=== PATIENT | female | born 1960 | race Hispanic/Latino ===

== ENCOUNTER 2017-05-17 21:20 | Emergency (ER) | payer MEDICARE, BC ==
--- NOTE | 2017-05-17 22:10 | RAD ---
RADIOGRAPH CHEST 2 VIEWS: Date: 05-17-17 Time: 9:40 P.M. HISTORY: 56-year-old female with hypoxemia. COMPARISON: 03-02-17 FINDINGS: There is cardiomegaly. Pulmonary vasculature is mildly prominent. Interstitial markings are mildly pr ominent diffusely. Previously demonstrated pulmonary densities which may have represented pneumonia o r pulmonary edema in the right mid and right lower lung zones, are no longer present. Again demonstra kristina is the calcification, tortuosity and ectasia of the thoracic aorta. Sternotomy wires. Left subcla vian dual-lead AICD. No pleural effusion or consolidation. No pneumothorax. IMPRESSION: 1. Cardiomegaly. 2. Automatic implantable cardioverter/defibrillator. 3. Atherosclerosis, ectasis, and tortuosity of thoracic aorta. MARIO ALBERTO POS: AKILAH
[2017-05-17 22:31] LABS: #Eosinphils 0.2 thou/uL (0.0-0.7); #Lymphocytes 0.5 thou/uL (1.20-3.40); #Monocytes 0.3 thou/uL (0.11-0.59); %Basophils 0.2 % (0.0-1.0); %Eosinophils 3.9 % (0.0-10.0); %Lymphocytes 8.2 % (21.0-51.0); %Monocytes 5.5 % (0.0-10.0); %Neutrophils 82.2 % (42.0-75.0); Mean Corpuscular HGB CONC 34.1 g/dL (32.0-36.0); Mean Corpuscular Hemoglobin 35.6 pg (27.0-31.0); Mean Platelet Volume 8.7 fL (7.4-10.4); Platelet Count 123 thou/uL (130-400); RBC Distribution Width 13.7 % (11.5-14.5); Red Blood Cell (RBC) Count 3.65 mill/uL (4.20-5.40); White Blood Cell (WBC) Count 6.1 thou/uL (4.8-10.8)
[2017-05-17 22:55] LABS: ALT (SGPT) 18 U/L (8-55); AST (SGOT) 29 U/L (5-34); Albumin 4.7 g/dL (3.5-5.0); Alkaline Phosphatase 111 U/L (40-150); Anion Gap 18 mmol/L (10-20); BUN (Urea Nitrogen) 17 mg/dL (9.8-20.1); Bilirubin, Total 0.4 mg/dL (0.2-1.2); Calc. Creatinine Clearance 0 mL/min (70-130); Calcium 10.2 mg/dL (7.8-10.44); Carbon Dioxide 32 mmol/L (22-29); Chloride 92 mmol/L (98-107); Estimated GFR-MDRD 11; Globulin 4.1 g/dL (2.4-3.5); Glucose 145 mg/dL (70-105); Potassium 3.7 mmol/L (3.5-5.1); Protein, Total 8.8 g/dL (6.0-8.3); Sodium 138 mmol/L (136-145)
[2017-05-17] MEDS ORDERED: Albuterol Sulfate 2.5 mg/3 ml Neb ONE (23:58)
== END 2017-05-18 00:25 | disposition home or self-care (01) ==
LOC: ERS 21:20
DX: J40 Bronchitis, not specified as acute or chronic (principal); I12.0 Hypertensive chronic kidney disease with stage 5 chronic kidney disease or end stage renal disease; N18.6 End stage renal disease; Z79.82 Long term (current) use of aspirin; Z79.899 Other long term (current) drug therapy
CPT/HCPCS: 71046; 80053; 85025; 93005; 94640; J7611; J7620

== ENCOUNTER 2018-05-03 23:17 | Emergency (ER) | payer MEDICARE, BC | END 2018-05-04 01:18 | disposition home or self-care (01) | LOC: ERS 23:17 | DX: T82.838A Hemorrhage due to vascular prosthetic devices, implants and grafts, initial encounter (principal); I12.0 Hypertensive chronic kidney disease with stage 5 chronic kidney disease or end stage renal disease; N18.6 End stage renal disease; J45.909 Unspecified asthma, uncomplicated; Z79.82 Long term (current) use of aspirin; Z79.899 Other long term (current) drug therapy; Z99.2 Dependence on renal dialysis | CPT/HCPCS: 99283 ==

== ENCOUNTER → 2019-05-22 | Day surgery (SDC) | payer MEDICARE, BC ==
[~2019-05-22] MED LIST: Heparin 10,000 UNITS/1 ML VIAL ONE
--- NOTE | 2019-05-22 08:27 | RAD ---
CHEST 1 VIEW: HISTORY: Preop testing. COMPARISON: Radiograph /[id number]. FINDINGS: Heart size is enlarged. There mild interstitial and developing alveolar edema. A single-lead dual-l ead AICD/pacer is similar. Mild dextroscoliosis of the thoracic spine. Moderate vascular calcificat ions of the aorta. No acute osseous abnormality. IMPRESSION: Mild cardiomegaly and background pulmonary edema. POS: [facility]
== END ==
LOC: CCL 06:05
PROVIDERS: ATTEND Internal Medicine Cardiovascular Disease
PROC: 4A023N7 Measurement of Cardiac Sampling and Pressure, Left Heart, Percutaneous Approach (ICD-10-PCS; principal; 2019-05-22)
PROC: B2111ZZ Fluoroscopy of Multiple Coronary Arteries using Low Osmolar Contrast (ICD-10-PCS; 2019-05-22)
PROC: B2131ZZ Fluoroscopy of Multiple Coronary Artery Bypass Grafts using Low Osmolar Contrast (ICD-10-PCS; 2019-05-22)
PROC: B2171ZZ Fluoroscopy of Right Internal Mammary Bypass Graft using Low Osmolar Contrast (ICD-10-PCS; 2019-05-22)
DX: I25.10 Atherosclerotic heart disease of native coronary artery without angina pectoris (principal); I25.82 Chronic total occlusion of coronary artery; I35.0 Nonrheumatic aortic (valve) stenosis; I51.7 Cardiomegaly; J81.1 Chronic pulmonary edema; I70.0 Atherosclerosis of aorta; Z79.82 Long term (current) use of aspirin; Z79.899 Other long term (current) drug therapy; Z88.0 Allergy status to penicillin; Z88.8 Allergy status to other drugs, medicaments and biological substances; Z95.810 Presence of automatic (implantable) cardiac defibrillator
CPT/HCPCS: 71045; J1644

== ENCOUNTER 2019-06-01 06:14 | Day surgery (SDC) | payer MEDICARE, BC ==
[2019-05-31 10:13] VITALS: BMI 34.3
[2019-06-01] MEDS ORDERED: Heparin 10,000 UNITS/1 ML VIAL ONE (06:31)
[2019-06-01] MEDS ORDERED: Lidocaine 1% (PF) 30 ML VIAL ONE (06:32)
[2019-06-01 07:19] LABS: #Eosinphils 0.2 thou/uL (0.0-0.7); #Lymphocytes 0.9 thou/uL (1.20-3.40); #Monocytes 0.7 thou/uL (0.11-0.59); #Neutrophils 3.8 thou/uL (1.40-6.50); %Basophils 0.6 % (0.0-1.0); %Eosinophils 3.4 % (0.0-10.0); %Lymphocytes 16.7 % (21.0-51.0); %Monocytes 11.8 % (0.0-10.0); %Neutrophils 67.6 % (42.0-75.0); Hemoglobin 13.2 g/dL (12.0-16.0); Mean Corpuscular HGB CONC 35.5 g/dL (32.0-36.0); Mean Corpuscular Hemoglobin 35.8 pg (27.0-31.0); Mean Platelet Volume 9.1 fL (7.4-10.4); Platelet Count 102 thou/uL (130-400); RBC Distribution Width 13.9 % (11.5-14.5); White Blood Cell (WBC) Count 5.6 thou/uL (4.8-10.8)
[2019-06-01 07:26] LABS: ALT (SGPT) 13 U/L (8-55); AST (SGOT) 22 U/L (5-34); Albumin 4.1 g/dL (3.5-5.0); Alkaline Phosphatase 93 U/L (40-110); Anion Gap 19 mmol/L (10-20); BUN (Urea Nitrogen) 17 mg/dL (9.8-20.1); Bilirubin, Total 0.5 mg/dL (0.2-1.2); Calc. Creatinine Clearance 16 mL/min (70-130); Calcium 9.7 mg/dL (7.8-10.44); Carbon Dioxide 27 mmol/L (22-29); Chloride 95 mmol/L (98-107); Estimated GFR-MDRD 8; Globulin 3.3 g/dL (2.4-3.5); Glucose 145 mg/dL (70-105); Potassium 3.6 mmol/L (3.5-5.1); Protein, Total 7.4 g/dL (6.0-8.3); Sodium 137 mmol/L (136-145)
[2019-06-01] MEDS ORDERED: Midazolam HCl 2 mg/2 ml Vial ONE (07:29)
[2019-06-01] MEDS ORDERED: Fentanyl 100 MCG/2 ML VIAL ONE (07:29)
--- NOTE | 2019-06-01 07:39 | RAD ---
EXAM: XR Chest 1 View Portable PROVIDED CLINICAL HISTORY: Preop COMPARISON: 05/22/2019 FINDINGS: Cardiac silhouette remains enlarged. Median sternotomy changes, atherosclerosis and left subclavian c ardiac pacing device are redemonstrated. Prominence of the pulmonary vasculature is redemonstrated. Multiple small nodules are again seen, similar to prior and possibly reflecting granulomatous disease . No lobar consolidation, pleural fluid or pneumothorax apparent. IMPRESSION: Cardiomegaly and prominence of the pulmonary vasculature suggesting congestive failure.
[2019-06-01] MEDS ORDERED: Protamine Sulfate 50 MG/5 ML VIAL ONE (08:49)
[2019-06-01] MEDS ORDERED: Iopamidol 370 76% 50 ML VIAL FS ONE (09:50)
[2019-06-01] MEDS ORDERED: Iopamidol 370 76% 100 ML VIAL ONE (09:50)
== END 2019-06-01 16:15 | disposition home or self-care (01) ==
LOC: CCL 06:14
PROVIDERS: ATTEND Internal Medicine Cardiovascular Disease
PROC: 4A023N6 Measurement of Cardiac Sampling and Pressure, Right Heart, Percutaneous Approach (ICD-10-PCS; principal; 2019-06-01)
PROC: B2111ZZ Fluoroscopy of Multiple Coronary Arteries using Low Osmolar Contrast (ICD-10-PCS; 2019-06-01)
PROC: B2121ZZ Fluoroscopy of Single Coronary Artery Bypass Graft using Low Osmolar Contrast (ICD-10-PCS; 2019-06-01)
PROC: B2171ZZ Fluoroscopy of Right Internal Mammary Bypass Graft using Low Osmolar Contrast (ICD-10-PCS; 2019-06-01)
DX: I25.10 Atherosclerotic heart disease of native coronary artery without angina pectoris (principal); I25.82 Chronic total occlusion of coronary artery; I25.810 Atherosclerosis of coronary artery bypass graft(s) without angina pectoris; I35.0 Nonrheumatic aortic (valve) stenosis; I51.7 Cardiomegaly; Z88.0 Allergy status to penicillin; Z88.8 Allergy status to other drugs, medicaments and biological substances; Z95.1 Presence of aortocoronary bypass graft
CPT/HCPCS: 36415; 71045; 76942; 80053; 85025; 85347; 93005; 93010; 93461; 99152; 99153; C1769; J1644; J2001; J2250; J2720; J3010; Q9967

== ENCOUNTER 2020-03-25 13:35 | Inpatient (IN) | payer MEDICARE, BC ==
[~2020-03-25 13:35] MED LIST changes: -Heparin 10,000 UNITS/1 ML VIAL ONE; +Iopamidol-370 76% 500 ML 1 ML ONE
[2020-03-25] MEDS ORDERED: Acetaminophen 325 MG TAB ONE (13:54)
[2020-03-25 14:38] LABS: #Eosinphils 0.1 thou/uL (0.0-0.7); #Lymphocytes 0.3 thou/uL (1.20-3.40); #Monocytes 0.1 thou/uL (0.11-0.59); %Basophils 0.5 % (0.0-1.0); %Eosinophils 2.1 % (0.0-10.0); %Lymphocytes 6.1 % (21.0-51.0); %Neutrophils 89.3 % (42.0-75.0); Hemoglobin 9.5 g/dL (12.0-16.0); Mean Corpuscular HGB CONC 33.5 g/dL (32.0-36.0); Mean Corpuscular Hemoglobin 34.1 pg (27.0-31.0); Mean Platelet Volume 10.4 fL (7.4-10.4); Platelet Count 65 thou/uL (130-400); RBC Distribution Width 12.6 % (11.5-14.5); Red Blood Cell (RBC) Count 2.79 mill/uL (4.20-5.40); White Blood Cell (WBC) Count 5.5 thou/uL (4.8-10.8)
--- NOTE | 2020-03-25 14:41 | RAD ---
Exam: Chest one view HISTORY: COVID positive patient. Worsening symptoms. Comparison: 06/01/2019 FINDINGS: Cardiac silhouette:Stable cardiomegaly. Stable dual lead left-sided transvenous defibrillator. There is a stent projecting over the expected course of the proximal ascending thoracic aorta. Aorta: Atherosclerosis Pulmonary vessels: Normal Costophrenic angles: Clear LUNGS: There are scattered interstitial and alveolar opacities Pneumothorax: None Osseous abnormalities: None IMPRESSION: 1. Possible congestive heart failure. Superimposed COVID pneumonia is suspected.
[2020-03-25] MEDS ORDERED: Azithromycin 500 MG VIAL ONE (15:07)
[2020-03-25] MEDS ORDERED: Cefepime 2 GM VIAL ONE (15:07)
[2020-03-25] MEDS ORDERED: Dexamethasone 10 MG/ML VIAL ONE (15:07)
[2020-03-25 15:22] LABS: ALT (SGPT) 38 U/L (8-55); AST (SGOT) 76 U/L (5-34); Albumin 3.1 g/dL (3.5-5.0); Alkaline Phosphatase 79 U/L (40-110); Anion Gap 22 mmol/L (10-20); BUN (Urea Nitrogen) 50 mg/dL (9.8-20.1); Bilirubin, Total 0.3 mg/dL (0.2-1.2); Calc. Creatinine Clearance 0 mL/min (70-130); Carbon Dioxide 26 mmol/L (22-29); Chloride 93 mmol/L (98-107); Globulin 4.1 g/dL (2.4-3.5); Glucose 196 mg/dL (70-105); Potassium 4.9 mmol/L (3.5-5.1); Protein, Total 7.2 g/dL (6.0-8.3); Sodium 136 mmol/L (136-145)
[2020-03-25] MEDS ORDERED: diphenhydrAMINE 50 MG/ML VIAL ONE (17:36)
[2020-03-25] MEDS ORDERED: Famotidine/PF 20 mg/2ml Vial ONE (17:37)
[2020-03-25] MEDS ORDERED: methylPREDNISolone Sod Succ 40 MG VIAL ONE (17:37)
[2020-03-25] MEDS ORDERED: HYDROcodone/Acetaminophen 5/325 mg Tablet PO PRN (19:07)
[2020-03-25] MEDS ORDERED: Acetaminophen 325 MG TAB PO PRN (19:07)
[2020-03-25] MEDS ORDERED: Dextrose 5% in Water 1,000 ML IV PRN (19:07)
[2020-03-25] MEDS ORDERED: Ondansetron PF 4 MG/2 ML Vial IVP PRN (19:07)
[2020-03-25] MEDS ORDERED: Dextrose 50% Abboject 50 ML SYRINGE SLOW IVP PRN (19:07)
[2020-03-25 20:04] LABS: Troponin I 0.119 ng/mL (< 0.028)
--- NOTE | 2020-03-25 20:19 | CT ---
CTA CHEST WITH CONTRAST: Axial tomograms were obtained following angio protocol with multiplanar reconstructions and 3D post p rocessing. Indications: Dyspnea, Covid positive. Comparison: CTA chest 2013. No recent comparison CT. FINDINGS: The pulmonary arteries show adequate enhancement. No evidence of pulmonary embolus. Thoracic aorta is opacified with atherosclerotic change. No dissection. Evidence of prosthetic aortic valve. Lung faust show diffuse bilateral somewhat hazy ground glass infiltrates. There is cardiomegaly with vascular congestion. Interstitial edema is superimposed on these numerous ground glass infiltrates. Findings indicate diffuse Covid pneumonia with superimposed congestive changes. IMPRESSION: 1. No evidence of pulmonary embolus. 2. Cardiomegaly with vascular congestion 3. Diffuse bilateral lung infiltrates. POS: [facility]
[2020-03-25 20:57] VITALS: BMI 34.0
[2020-03-25 21:39] LABS: Troponin I 0.131 ng/mL (< 0.028)
--- NOTE | 2020-03-25 23:39 | HP ---
PRIMARY CARE PHYSICIAN: Dr. Freeman. CHIEF COMPLAINT: Increasing shortness of breath. HISTORY OF PRESENT ILLNESS: Ms. Claudio is a very pleasant 59-year-old female who has a history of end-stage renal disease on hemodialysis, as well as ischemic cardiomyopathy. She was recently diagnosed with COVID pneumonia. Her both of her sons have COVID pneumonia as well as her who is currently still in the hospital. She shows me her lab results on her phone, in which she was diagnosed with COVID pneumonia on March 13. She says since then she has been doing actually fine, her only symptoms were cough and congestion. She had been having symptoms about 2 days prior to her test. She says that she has been having the cough, but no fever, no chills, no diarrhea, no body aches and she was given azithromycin and Decadron and had been doing okay. Until about 3 days ago when she started checking her O2 saturations and noticed that they had been steadily going down, first they were in the low 90s and then they went into the 80s. Her son is on home oxygen and so she started taking some of his oxygen, but felt she better come to the hospital as a precaution. In the ER, she was evaluated, had a chest x-ray with findings which were consistent with COVID pneumonia and she is being admitted for further treatment. She says she does not feel bad other than noticing that her O2 sats had dropped and that she has a persistent cough. She also has a history of congestive heart failure. She says she is not above her usual dry weight. In fact, her weight is actually lower and she says she has been adherent to her diet. REVIEW OF SYSTEMS: All systems were reviewed and are negative except for that mentioned in history of present illness. PAST MEDICAL HISTORY: Significant for coronary artery disease, chronic systolic heart failure, ventricular fibrillation, paroxysmal atrial fibrillation, hypertension, hyperlipidemia, end-stage renal disease on dialysis, and diabetes mellitus type 2. PAST SURGICAL HISTORY: She had a hysterectomy, five-vessel CABG. She has a biventricular defibrillator. She has had eye surgery and lysis of adhesions. ALLERGIES: TO PENICILLIN AND SHE ALSO SAYS HEPARIN, WHICH SHE SAYS MAKES HER SHE HAS BLEEDING IN THE RETINA. FAMILY HISTORY: Significant for coronary artery disease and diabetes. SOCIAL HISTORY: She is a nonsmoker, nondrinker. Denies any drug use. 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 She is and she is a full code. MEDICATIONS: Taken from the emergency room records and include: 1. Hydralazine 10 mg daily. 2. Crestor 10 mg a day. 3. Amlodipine 10 mg daily. 4. Aspirin 325 mg daily. 5. Synthroid once a day. 6. Albuterol inhaler as needed. PHYSICAL EXAMINATION: GENERAL: She is alert and oriented. She appears to be in no acute distress. She is speaking in complete sentences and sitting up in the bed. VITAL SIGNS: Blood pressure was 140/70, heart rate 74, respiratory rate of 24, temperature was 100.1, and O2 saturation was 89% on room air. HEENT: Pupils are equal, round, and reactive. Extraocular muscles are intact. Her sclerae anicteric. Throat; no erythema, no exudates. NECK: No adenopathy. No bruits. LUNGS: She has rales essentially throughout both lung faust and up to the apices. There was no rhonchi. No wheezing. CARDIOVASCULAR: She had a normal S1 and S2. There is no S3 or S4. No murmurs, clicks, or rubs. ABDOMEN: Soft, nontender, and nondistended. Positive for bowel sounds. No rebound. No guarding. EXTREMITIES: She has trace edema. No calf tenderness. No joint effusions. Her dorsalis pedis pulses are palpable, slightly diminished on the right, but palpable. SKIN: No significant skin lesions. LABORATORY RESULTS: The sodium is 136, potassium 4.9, chloride is 93, CO2 of 26, BUN of 50, creatinine 7.5, glucose is 196. White blood cell count 5.5, hemoglobin 9.5, hematocrit is 28.4, and platelet count was 65. D-dimer was 2.23. Again, her chest x-ray showed bilateral pulmonary infiltrates throughout. Heart size is enlarged with cardiomegaly and that is by my reading. ASSESSMENT: This is a pleasant 59-year-old female who presents with acute respiratory failure with hypoxemia, possibly due to COVID. However, she is about 12 to 14 days out versus superimposed bacterial pneumonia versus volume overload. She will be admitted and started on IV antibiotics. Since she was given azithromycin early on, we will go with Levaquin at this time, also place her on IV Decadron. She is not a candidate for remdesivir given her renal function as well as she is more than 10 days post symptoms. This was explained to the patient. 1. End-stage renal disease, on hemodialysis. She is due for dialysis tomorrow and we will consult Dr. Valles, who is her automotive service assistant. 2. Hypertension. We will need to reconcile and restart her home medications as well as a p.r.n. medicines. 3. Diabetes mellitus. Again, we will need to reconcile and restart her home medications and place her on a sliding scale. 4. Hypothyroidism. Restart Synthroid. She clinically appears euthyroid. 5. Deep venous thrombosis prophylaxis. She says she cannot take heparin similar to what her told me when I was taking care of him. She says that causes her eyes to bleed and she says this is true effect that she was told by her payroll and benefits assistant. It sounds like some type of retinal hemorrhage and she was told not to take heparin. Therefore, given her situation with the end-stage renal disease, we will be placing her on Xarelto low-dose daily. Job ID: [id number]
[2020-03-26] MEDS: HumaLOG 300 UNITS/3 ML VIAL SC PRN ×4 (05:59→21:02)
[2020-03-26 06:29] LABS: #Lymphocytes 0.3 thou/uL (1.20-3.40); #Neutrophils 2.6 thou/uL (1.40-6.50); %Basophils 0.7 % (0.0-1.0); %Eosinophils 0.1 % (0.0-10.0); %Lymphocytes 8.5 % (21.0-51.0); %Monocytes 0.9 % (0.0-10.0); %Neutrophils 89.8 % (42.0-75.0); Hemoglobin 9.5 g/dL (12.0-16.0); Mean Corpuscular HGB CONC 34.2 g/dL (32.0-36.0); Mean Corpuscular Hemoglobin 34.4 pg (27.0-31.0); Mean Platelet Volume 9.6 fL (7.4-10.4); Platelet Count 80 thou/uL (130-400); RBC Distribution Width 12.5 % (11.5-14.5); Red Blood Cell (RBC) Count 2.78 mill/uL (4.20-5.40); White Blood Cell (WBC) Count 2.9 thou/uL (4.8-10.8)
[2020-03-26 06:49] LABS: Anion Gap 23 mmol/L (10-20); BUN (Urea Nitrogen) 65 mg/dL (9.8-20.1); CRP (Inflammatory) 15.24 mg/dL (= or < 0.5); Calc. Creatinine Clearance 9 mL/min (70-130); Calcium 9.1 mg/dL (7.8-10.44); Carbon Dioxide 24 mmol/L (22-29); Chloride 92 mmol/L (98-107); Glucose 271 mg/dL (70-105); Potassium 4.7 mmol/L (3.5-5.1); Sodium 134 mmol/L (136-145)
[2020-03-26] MEDS ORDERED: Albuterol Sulfate 2.5 mg/3 ml Neb NEB PRN (08:49)
--- NOTE | 2020-03-26 08:49 | PDOC.HOSPP ---
- Subjective Encounter Date: 03/26/20 Encounter Time: 11:30 Subjective: Patient reports marked improvement in her symptoms. Some dyspnea on exertion and a little bit of weakness with ambulation but otherwise no cough or shortness of breath at rest. Currently requiring just 2 L of oxygen. - Objective Vital Signs & Weight: Vital Signs (12 hours) Temp Pulse Resp BP Pulse Ox 03/26/20 07:44 96.5 F L 79 18 188/87 H 93 L 03/26/20 04:00 98.6 F 75 20 171/87 H 96 03/26/20 00:00 98.5 F 76 18 166/83 H 96 03/25/20 23:07 98.5 F 76 18 166/83 H 96 Weight Weight 180 lb Result Diagrams: 03/26/20 06:10 03/26/20 06:10 Additional Labs: Accuchecks 03/26/20 05:30 POC Glucose 259 H Hospitalist ROS - Review of Systems Constitutional: denies: fever, chills Respiratory: reports: cough, SOB with excertion. denies: shortness of breath Cardiovascular: denies: chest pain, palpitations Gastrointestinal: denies: nausea, vomiting, abdominal pain - Medication Medications: Active Medications Generic Name Dose Route Start Last Admin Trade Name Freq PRN Reason Stop Dose Admin Insulin Human Lispro 0 units 03/25/20 19:07 03/26/20 05:59 Humalog 300 Units/3 Ml Vial SC 6 unit .MODERATE SLIDING SC PRN Administration Moderate Correctional Scale Sodium Chloride 10 ml 03/25/20 21:00 03/25/20 21:00 Flush - Normal Saline 10 Ml Syringe IVF 10 ml Q12HR GREGORIO Administration Hospitalist Exam Vitals: Vital Signs (12 hours) Temp Pulse Resp BP Pulse Ox 03/26/20 07:44 96.5 F L 79 18 188/87 H 93 L 03/26/20 04:00 98.6 F 75 20 171/87 H 96 03/26/20 00:00 98.5 F 76 18 166/83 H 96 03/25/20 23:07 98.5 F 76 18 166/83 H 96 Weight Weight 180 lb General Appearance: NAD, awake alert ENT: moist mucosa Heart: RRR, no murmur, no gallops, no rubs Respiratory: no wheezes, no ronchi, no tachypnea Respiratory - other findings: Mild bibasilar Rales Gastrointestinal: soft, non-tender, non-distended, normal bowel sounds Extremities: no edema Psychiatric: normal affect, normal behavior, A&O x 3 Hosp A/P - Plan Covid-19 Pneumonia -finished course of dexamethasone, not Monoclonal antibiody or Remdesivir candidate -Supplement O2 as needed Acute Respiratory Failure with Hypoxia -On 2L NC O2 -CTA with Covid-19 PNA and Congestive failure Acute on Chronic Systolic CHF -Patient of Dr. Hoang's, cardiac cath and ECHO last year with suppressed EF 25-30% -Has implanted defibrillator -Will have fluid removed as tolerated during dialysis -Fluid restriction diet ESRD on Dialysis -Dr. Valles consulted for continued dialysis CAD with previous CABG -patent grafts on cath last year Severe Aortic Stenosis Patient had bioprosthetic aortic valve replacement last summer and finished 6 months of anticoagulation HTN -resuming home meds Diabetes Mellitus Type 2 -resume home meds -diabetic diet -SSI Hypothyroidism -resuming home levothyroxine DVT Proph- Xarelto as patient has adverse effects to heparin GI Proph- Protonix Dispo: If remains stable on low dose O2 can likely be discharged home with O2 in 1-2 days.
[2020-03-26] MEDS ORDERED: Aspirin 325 MG TAB PO SCH (09:00)
[2020-03-26] MEDS ORDERED: Mometasone 100 MCG/PUFF (1 INHALER) INH PRN (09:29)
[2020-03-26] MEDS: Amlodipine 10 MG TAB PO SCH (09:33)
[2020-03-26] MEDS: Ezetimibe 10 MG TAB PO SCH (09:33)
[2020-03-26] MEDS: Carvedilol 25 MG TAB PO SCH ×2 (09:33→21:01)
[2020-03-26] MEDS: Rivaroxaban 15 MG TAB PO SCH (09:34)
[2020-03-26] MEDS: Dexamethasone 4 mg/ml Vial SLOW IVP SCH (09:35)
[2020-03-26] MEDS: Benzonatate 100 MG CAP PO PRN ×2 (10:27→17:28)
[2020-03-26] MEDS ORDERED: Epoetin (ESRD) 20,000 UNITS/ML IVP SCH (16:30)
[2020-03-26] MEDS ORDERED: EPOETIN ALFA-EPBX (ESRD) 2,000 UNIT/ML VIAL IVP SCH (17:00)
[2020-03-26] MEDS ORDERED: EPOETIN ALFA-EPBX (ESRD) 3,000 UNIT/ML VIAL IVP SCH (17:00)
[2020-03-26] MEDS: Sevelamer Carbonate 800 MG TAB PO SCH ×2 (17:00→17:27)
--- NOTE | 2020-03-26 17:46 | CON ---
DATE OF CONSULTATION: REQUESTING PHYSICIAN: Dr. Mills. REASON FOR CONSULTATION: Need for maintenance hemodialysis. IMPRESSION: 1. End-stage renal disease, hemodialysis dependent, remains on Wednesday, , Wednesday schedule. 2. Respiratory distress in the context of COVID pneumonitis. 3. Hypertension. 4. Ischemic cardiomyopathy. PLAN: 1. The patient to remain on Wednesday, , Wednesday schedule dialysis with ultrafiltration as tolerated by hemodynamics. 2. The rest of the COVID management is per the primary team. HISTORY OF PRESENT ILLNESS: History is that of a 59-year-old female patient with end-stage renal disease, hemodialysis dependent, who recently got infected with COVID, but was doing well as an outpatient. However, over the course of the past 2 to 3 days, she has been experiencing worsening shortness of breath, for which the patient presented to the hospital. Of note, multiple family members of this patient did test positive to COVID need for maintenance hemodialysis necessitated this Renal consultation. PAST MEDICAL HISTORY: Significant for ischemic cardiomyopathy, status post bypass surgery, valvular heart disease, paroxysmal atrial fibrillation, hypertension, dyslipidemia, diabetes type 2, and end-stage renal disease. MEDICATIONS: Reviewed as documented on [employer]. ALLERGIES: TO PENICILLIN AND HEPARIN. FAMILY HISTORY: Not significantly related to present illness. SOCIAL HISTORY: . No alcohol. No tobacco. No illicit drug use. 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 REVIEW OF SYSTEMS: As documented in the body of the history. All other systems were reviewed and found not to be significantly related to present illness. PHYSICAL EXAMINATION: VITAL SIGNS: The patient noted with the following vital signs; afebrile, temperature 97.1, pulse 87, respiratory rate of 16, O2 saturation blood pressure 134/84. HEENT: Unremarkable. CARDIOVASCULAR SYSTEM: First and second heart sounds were heard. RESPIRATORY SYSTEM: Clear to auscultation. DIGESTIVE SYSTEM: Revealed a benign abdomen. EXTREMITIES: No peripheral edema. SKIN: No new gross rash. LYMPHATICS: No peripheral lymphadenopathy. SUMMARY: A 59-year-old female patient, recently infected with COVID, now experiencing worsening shortness of breath. Thank you for this consultation. We will follow with you. Job ID: [id number]
[2020-03-26] MEDS ORDERED: hydrALAZINE 25 MG TAB PO SCH (21:00)
[2020-03-26] MEDS: Rosuvastatin 20 MG TAB PO SCH (21:01)
[2020-03-27] MEDS: hydrALAZINE 20 MG/ML VIAL SLOW IVP PRN ×2 (01:14→12:56)
[2020-03-27] MEDS ORDERED: Sodium Chloride 0.9% 10 ML ONE (01:15)
[2020-03-27] MEDS: HumaLOG 300 UNITS/3 ML VIAL SC PRN ×4 (04:47→20:23)
[2020-03-27] MEDS: Benzonatate 100 MG CAP PO PRN ×2 (04:50→20:23)
--- NOTE | 2020-03-27 07:47 | PDOC.HOSPP ---
- Subjective Encounter Date: 03/27/20 Encounter Time: 09:10 Subjective: Patient feeling much better. The nurse just took her off her oxygen. Has not returned to recheck oxygen on room air yet. She feels able to go home. She reports her is in the ICU on the ventilator. - Objective Vital Signs & Weight: Vital Signs (12 hours) Temp Pulse Resp BP Pulse Ox 03/27/20 04:00 96.9 F L 77 20 180/79 H 94 L 03/27/20 01:50 170/79 H 03/27/20 01:14 77 03/27/20 00:00 97.2 F L 77 20 179/82 H 92 L 03/26/20 21:01 78 03/26/20 20:00 96.7 F L 78 20 178/77 H 94 L Weight Weight 180 lb Result Diagrams: 03/26/20 06:10 03/26/20 06:10 Additional Labs: Accuchecks 03/27/20 03/26/20 03/26/20 04:25 20:48 17:25 POC Glucose 282 H 236 H 194 H 03/26/20 11:25 POC Glucose 306 H Hospitalist ROS - Review of Systems Constitutional: denies: fever, chills Respiratory: denies: cough, shortness of breath Cardiovascular: denies: chest pain, palpitations Gastrointestinal: denies: nausea, vomiting, abdominal pain - Medication Medications: Active Medications Generic Name Dose Route Start Last Admin Trade Name Freq PRN Reason Stop Dose Admin Amlodipine Besylate 10 mg 03/26/20 09:00 03/26/20 09:33 Amlodipine 10 Mg Tab PO 10 mg DAILY GREGORIO Administration Benzonatate 100 mg 03/25/20 19:07 03/27/20 04:50 Benzonatate 100 Mg Cap PO 100 mg Q6H PRN Administration Cough Carvedilol 25 mg 03/26/20 09:00 03/26/20 21:01 Carvedilol 25 Mg Tab PO 25 mg BID GREGORIO Administration Dexamethasone 6 mg 03/26/20 09:00 03/26/20 09:35 Dexamethasone 4 Mg/Ml Vial SLOW IVP 6 mg DAILY GREGORIO Administration Ezetimibe 10 mg 03/26/20 09:00 03/26/20 09:33 Ezetimibe 10 Mg Tab PO 10 mg DAILY GREGORIO Administration Epoetin Sathish-epbx 2,000 unit 03/26/20 17:00 03/26/20 18:08 Epoetin Sathish-Epbx (Esrd) 2,000 Unit/Ml Vial IVP 2,000 unit TTHSA GREGORIO Administration Epoetin Sathish-epbx 3,000 unit 03/26/20 17:00 03/26/20 18:08 Epoetin Sathish-Epbx (Esrd) 3,000 Unit/Ml Vial IVP 3,000 unit TTHSA GREGORIO Administration Hydralazine HCl 10 mg 03/25/20 19:07 03/27/20 01:14 Hydralazine 20 Mg/Ml Vial SLOW IVP 10 mg Q4H PRN Administration SBP > 180 and HR < 70 Hydralazine HCl 50 mg 03/26/20 21:00 03/26/20 21:01 Hydralazine 25 Mg Tab PO 50 mg BID GREGORIO Administration Insulin Human Lispro 0 units 03/25/20 19:07 03/27/20 04:47 Humalog 300 Units/3 Ml Vial SC 6 units .MODERATE SLIDING SC PRN Administration Moderate Correctional Scale Insulin Human Lispro 0 units 03/25/20 19:07 03/26/20 21:02 Humalog 300 Units/3 Ml Vial SC 2 unit .BEDTIME SLIDING SC PRN Administration Bedtime Correctional Scale Pantoprazole Sodium 40 mg 03/26/20 09:00 03/26/20 09:34 Pantoprazole 40 Mg Tab PO 40 mg DAILY GREGORIO Administration Rivaroxaban 15 mg 03/26/20 09:00 03/26/20 09:34 Rivaroxaban 15 Mg Tab PO 15 mg DAILY GREGORIO Administration Rosuvastatin Calcium 20 mg 03/26/20 21:00 03/26/20 21:01 Rosuvastatin 20 Mg Tab PO 20 mg HS GREGORIO Administration Sevelamer Carbonate 2,400 mg 03/26/20 12:00 03/26/20 17:27 Sevelamer Carbonate 800 Mg Tab PO 2,400 mg TID-WM GREGORIO Administration Sodium Chloride 10 ml 03/25/20 21:00 03/26/20 21:01 Flush - Normal Saline 10 Ml Syringe IVF 10 ml Q12HR GREGORIO Administration Hospitalist Exam Vitals: Vital Signs (12 hours) Temp Pulse Resp BP Pulse Ox 03/27/20 04:00 96.9 F L 77 20 180/79 H 94 L 03/27/20 01:50 170/79 H 03/27/20 01:14 77 03/27/20 00:00 97.2 F L 77 20 179/82 H 92 L 03/26/20 21:01 78 03/26/20 20:00 96.7 F L 78 20 178/77 H 94 L Weight Weight 180 lb General Appearance: NAD, awake alert ENT: moist mucosa Heart: RRR, no murmur, no gallops, no rubs Respiratory: no wheezes, no ronchi, no tachypnea Respiratory - other findings: Mild Rales in bases Gastrointestinal: soft, non-tender, non-distended, normal bowel sounds Extremities: no edema Psychiatric: normal affect, normal behavior, A&O x 3 Hosp A/P - Plan Covid-19 Pneumonia -finished course of dexamethasone, continuing daily here, not Monoclonal antibiody or Remdesivir candidate -Supplement O2 as needed Acute Respiratory Failure with Hypoxia -On 2L NC O2 -CTA with Covid-19 PNA and Congestive failure Acute on Chronic Systolic CHF -Patient of Dr. Hoang's, cardiac cath and ECHO last year with suppressed EF 25-30% -Has implanted defibrillator -Will have fluid removed as tolerated during dialysis -Fluid restriction diet ESRD on Dialysis -Dr. Valles consulted for continued dialysis CAD with previous CABG -patent grafts on cath last year Severe Aortic Stenosis Patient had bioprosthetic aortic valve replacement last summer and finished 6 months of anticoagulation HTN -resuming home meds Diabetes Mellitus Type 2 -resume home meds -diabetic diet -SSI Hypothyroidism -resuming home levothyroxine DVT Proph- Xarelto as patient has adverse effects to heparin GI Proph- Protonix Dispo: Patient is stable, and can be discharged home on home oxygen depending on her sats today at rest and with ambulation. May be able to go home off oxygen.
[2020-03-27] MEDS: Dexamethasone 4 mg/ml Vial SLOW IVP SCH (08:17)
[2020-03-27] MEDS: Sevelamer Carbonate 800 MG TAB PO SCH ×3 (08:17→17:02)
[2020-03-27] MEDS: Aspirin Chewable 81 MG TAB PO SCH (08:18)
[2020-03-27] MEDS: Carvedilol 25 MG TAB PO SCH ×2 (08:18→20:23)
[2020-03-27] MEDS: Ezetimibe 10 MG TAB PO SCH (08:19)
[2020-03-27] MEDS: hydrALAZINE 25 MG TAB PO SCH ×3 (08:19→20:27)
[2020-03-27] MEDS: Amlodipine 10 MG TAB PO SCH (08:19)
[2020-03-27] MEDS: Prenatal Vitamin 1 TAB PO SCH (08:19)
[2020-03-27] MEDS: Ubidecarenone 50 MG CAP PO SCH (08:20)
[2020-03-27] MEDS: Rivaroxaban 15 MG TAB PO SCH (08:20)
--- NOTE | 2020-03-27 10:30 | PDOC.DS.DS ---
Provider Date of Admission: 03/25/20 19:07 Date of Discharge: 03/27/20 Admitting Provider: Artie Mills MD Consultations: Nephrology (Dr. Valles) Primary Care Physician: Unknown Course Hospital Course: This is a 59-year-old female with a history of end-stage renal disease on dialysis who was whole family got COVID-19. She tested + 3 weeks ago. She never got bad fever and most of her symptoms had improved however over the last few days she did get increased shortness of breath and noticed with a home pulse ox that her oxygen saturations were dropping into the 80s. Patient was admitted to the hospital. She had a CTA that showed Covid pneumonia along with some congestion in her lungs. She did have a dialysis and fluid removal in the hospital. She was saturating well on 2 L of oxygen her entire hospital stay. She was not able to receive remdesivir due to the length of illness and her end- stage renal disease. Patient was stable and ambulating and ready to go home and so is being discharged home. We will check O2 sats before discharge to see if she needs home oxygen. Pertinent Studies: CTA CHEST WITH CONTRAST: IMPRESSION: 1. No evidence of pulmonary embolus. 2. Cardiomegaly with vascular congestion 3. Diffuse bilateral groundglass lung infiltrates indicative of Covid pneumonia. Resuscitation Status: 03/25/20 18:53 Resuscitation Status Routine Resuscitation Status: FULL: Full Resuscitation Lab Results: 03/26/20 06:10 03/26/20 06:10 Abnormal Lab Results - Last 48 hrs 03/25/20 14:20: Chloride 93 L, Anion Gap 22 H, BUN 50 H, Creatinine 7.55 H, AST 76 H, Albumin 3.1 L, Globulin 4.1 H, Albumin/Globulin Ratio 0.8 L 03/25/20 14:20: D-Dimer 2.23 H 03/25/20 14:20: RBC 2.79 L, Hgb 9.5 L, Hct 28.4 L, MCV 102.0 H, MCH 34.1 H, Plt Count 65 L, Neutrophils % 89.3 H, Lymphocytes % 6.1 L, Lymphocytes # 0.3 L, Monocytes # 0.1 L 03/25/20 14:20: Troponin I 0.124 H 03/25/20 14:20: B-Natriuretic Peptide 499.3 H 03/25/20 19:11: Troponin I 0.119 H 03/25/20 20:56: Troponin I 0.131 H 03/26/20 06:10: Sodium 134 L, Chloride 92 L, Anion Gap 23 H, BUN 65 H, Creatinine 8.48 H, C-Reactive Protein 15.24 H 03/26/20 06:10: Ferritin 8868.40 H 03/26/20 06:10: WBC 2.9 L, RBC 2.78 L, Hgb 9.5 L, Hct 27.9 L, MCV 101.0 H, MCH 34.4 H, Plt Count 80 L, Neutrophils % 89.8 H, Lymphocytes % 8.5 L, Lymphocytes # 0.3 L, Monocytes # 0.0 L 03/26/20 06:10: D-Dimer 1.90 H Microbiology - Entire Visit 03/25/20 14:59 Venous blood - Right Arm Blood Culture - Preliminary Specimen has been received and culture in progress. No Growth to date. 03/25/20 14:59 Venous blood - Right Hand Blood Culture - Preliminary Specimen has been received and culture in progress. No Growth to date. Vitals: Vital Signs (12 hours) Temp Pulse Resp BP BP Pulse Ox 03/27/20 08:19 78 185/81 H 03/27/20 07:54 98.1 F 78 20 185/81 H 96 03/27/20 04:00 96.9 F L 77 20 180/79 H 94 L 03/27/20 01:50 170/79 H 03/27/20 01:14 77 03/27/20 00:00 97.2 F L 77 20 179/82 H 92 L Weight Weight 180 lb Physical Exam: The patient was seen and examined on the day of discharge. Problem Assessment: Covid-19 Pneumonia Acute Respiratory Failure with Hypoxia Acute on Chronic Systolic CHF ESRD on Dialysis CAD with previous CABG Severe Aortic Stenosis status post bioprosthetic valve replacement this last year HTN Diabetes Mellitus Type 2 Hypothyroidism Plan of Treatment: Patient to be discharged home. We will arrange home oxygen if patient's O2 sats at rest and with ambulation continue to drop. Time Spent in discharge related activities (mins): 32 Plan Home Medications: Medication Instructions Recorded Confirmed Type ALButerol Sulfate [Ventolin Neb] 3 ml NEB Q4HR PRN 01/09/13 03/26/20 History Amlodipine Besylate [amLODIPine 10 mg PO DAILY 01/09/13 03/26/20 History Besylate] Carvedilol [Coreg] 25 mg PO BID 01/09/13 03/26/20 History Budesonide 0.5 mg NEB BID PRN 04/13/16 03/26/20 History Ezetimibe 1 tab PO DAILY 04/13/16 03/26/20 History Rosuvastatin Calcium 1 tab PO DAILY 04/13/16 03/26/20 History Sevelamer Carbonate [Renvela] 2,400 mg PO TID 04/13/16 03/26/20 History hydrALAZINE [Apresoline] 50 mg PO BID 04/13/16 03/26/20 History Aspirin 325 mg PO DAILY 05/18/19 03/26/20 History [id number]/Iron Fum/Folic/Docusate 1 tab PO DAILY 05/18/19 03/26/20 History [ 19] Ubidecarenone/Vit E Acet [Co Q-10 1 cap PO DAILY 05/18/19 03/26/20 History 100 mg Softgel] Allergies: Penicillins Allergy (Severe, Verified 05/31/19 10:49) Anaphylaxis heparin (porcine) [heparin,porcine] Allergy (Unknown, Verified 05/31/19 10:49) PER PT SUMMARY (02/26/13@0045) Activity:: Activity as Tolerated Nourishment:: Fluid Restriction Diet, Renal Diet Therapies:: Not Applicable Equipment/Supplies:: Oxygen (2 L nasal cannula) IV Therapy:: Not Applicable Referrals: Unknown,Unknown [Primary Care Provider] - 7 Days Disposition: HOME Quality CORE MEASURES:: N/A
--- NOTE | 2020-03-27 16:20 | PRG ---
DATE OF SERVICE: 03/27/2020 SUBJECTIVE: The patient seems to be doing okay. OBJECTIVE: VITAL SIGNS: Afebrile, temperature 98.6, pulse 74, respiratory rate of 20, O2 saturations of 91%, with a blood pressure HEENT: Unremarkable. CARDIOVASCULAR SYSTEM: First and second heart sounds were heard. RESPIRATORY SYSTEM: Clear to auscultation. DIGESTIVE SYSTEM: Revealed a benign abdomen. EXTREMITIES: No peripheral edema. SKIN: No new gross rash. LYMPHATICS: No peripheral lymphadenopathy. IMPRESSION: 1. End-stage renal disease, on dialysis. 2. COVID pneumonitis with relative hypoxia. PLAN: 1. The patient to continue with current dialysis schedule. The patient was dialyzed yesterday with ultrafiltration as tolerated by hemodynamics. 2. Further management will be dependent on the clinical course. Job ID: [id number]
[2020-03-27] MEDS ORDERED: cloNIDine 0.1 MG TAB PO PRN (17:06)
[2020-03-27] MEDS: Rosuvastatin 20 MG TAB PO SCH (20:23)
[2020-03-28] MEDS: HumaLOG 300 UNITS/3 ML VIAL SC PRN (05:13)
[2020-03-28] MEDS: Sevelamer Carbonate 800 MG TAB PO SCH ×2 (08:23→12:19)
[2020-03-28] MEDS: Prenatal Vitamin 1 TAB PO SCH (08:24)
[2020-03-28] MEDS: Ezetimibe 10 MG TAB PO SCH (08:24)
[2020-03-28] MEDS: Aspirin Chewable 81 MG TAB PO SCH (08:24)
[2020-03-28] MEDS: hydrALAZINE 25 MG TAB PO SCH ×2 (08:25→14:59)
[2020-03-28] MEDS: Carvedilol 25 MG TAB PO SCH (08:26)
[2020-03-28] MEDS: Rivaroxaban 15 MG TAB PO SCH (08:26)
[2020-03-28] MEDS: Amlodipine 10 MG TAB PO SCH (08:26)
[2020-03-28] MEDS: Ubidecarenone 50 MG CAP PO SCH (08:26)
--- NOTE | 2020-03-28 15:40 | PDOC.DS.DS ---
Provider Date of Admission: 03/25/20 19:07 Date of Discharge: 03/28/20 Admitting Provider: Artie Mills MD Primary Care Physician: Unknown Course Hospital Course: This is a 59-year-old female with a history of end-stage renal disease on dialysis who was whole family got COVID-19. She tested + 3 weeks ago. She never got bad fever and most of her symptoms had improved however over the last few days she did get increased shortness of breath and noticed with a home pulse ox that her oxygen saturations were dropping into the 80s. Patient was admitted to the hospital. She had a CTA that showed Covid pneumonia along with some congestion in her lungs. She did have a dialysis and fluid removal in the h [facility]spital. She was saturating well on 2 L of oxygen her entire hospital stay. She was not able to receive remdesivir due to the length of illness and her end- stage renal disease. Patient was stable and ambulating and ready to go home and so is being discharged home. Discharge initially planned for 03/27/2020 however due to delay in arranging for home oxygen, this was postponed to 03/28/2020 whic h was the date of eventual discharge Resuscitation Status: 03/25/20 18:53 Resuscitation Status Routine Resuscitation Status: FULL: Full Resuscitation Lab Results: 03/26/20 06:10 03/26/20 06:10 Microbiology - Entire Visit 03/25/20 14:59 Venous blood - Right Arm Blood Culture - Preliminary NO GROWTH AT 48 HOURS 03/25/20 14:59 Venous blood - Right Hand Blood Culture - Preliminary NO GROWTH AT 48 HOURS Vitals: Vital Signs (12 hours) Temp Pulse Resp BP BP Pulse Ox 03/28/20 14:59 72 141/72 H 03/28/20 11:26 123/69 03/28/20 09:00 98.4 F 03/28/20 08:26 72 181/85 H 03/28/20 08:25 72 181/85 H 03/28/20 08:07 98.4 F 72 20 181/85 H 93 L 03/28/20 08:00 93 L 03/28/20 05:00 98.4 F 77 20 176/86 H 91 L Weight Weight 180 lb Physical Exam: The patient was seen and examined on the day of discharge. Problem Assessment: Covid-19 Pneumonia Acute Respiratory Failure with Hypoxia Acute on Chronic Systolic CHF ESRD on Dialysis CAD with previous CABG Severe Aortic Stenosis status post bioprosthetic valve replacement this last year HTN Diabetes Mellitus Type 2 Hypothyroidism Plan of Treatment: Patient to be discharged home. We will arrange home oxygen if patient's O2 sats at rest and with ambulation continue to drop. Plan Home Medications: Medication Instructions Recorded Confirmed Type ALButerol Sulfate [Ventolin Neb] 3 ml NEB Q4HR PRN 01/09/13 03/26/20 History Amlodipine Besylate [amLODIPine 10 mg PO DAILY 01/09/13 03/26/20 History Besylate] Carvedilol [Coreg] 25 mg PO BID 01/09/13 03/26/20 History Budesonide 0.5 mg NEB BID PRN 04/13/16 03/26/20 History Ezetimibe 1 tab PO DAILY 04/13/16 03/26/20 History Rosuvastatin Calcium 1 tab PO DAILY 04/13/16 03/26/20 History Sevelamer Carbonate [Renvela] 2,400 mg PO TID 04/13/16 03/26/20 History hydrALAZINE [Apresoline] 50 mg PO BID 04/13/16 03/26/20 History Aspirin 325 mg PO DAILY 05/18/19 03/26/20 History Obw438/Iron Fum/Folic/Docusate 1 tab PO DAILY 05/18/19 03/26/20 History [ 19] Ubidecarenone/Vit E Acet [Co Q-10 1 cap PO DAILY 05/18/19 03/26/20 History 100 mg Softgel] Allergies: Penicillins Allergy (Severe, Verified 05/31/19 10:49) Anaphylaxis heparin (porcine) [heparin,porcine] Allergy (Unknown, Verified 05/31/19 10:49) PER PT SUMMARY (02/26/13@0045) Activity:: Activity as Tolerated Nourishment:: Fluid Restriction Diet, Renal Diet Therapies:: Not Applicable Equipment/Supplies:: Oxygen (2 L nasal cannula) IV Therapy:: Not Applicable Referrals: [facility] [Outside] Unknown,Unknown [Primary Care Provider] - 7 Days Disposition: HOME Quality CORE MEASURES:: N/A
[2020-03-28 16:52] VITALS: BP 136/67; TEMP 97.9
--- NOTE | 2020-03-29 06:08 | PRG ---
DATE OF SERVICE: 03/28/2020 SUBJECTIVE: The patient noted with the following vital signs. OBJECTIVE: VITAL SIGNS: Afebrile, temperature 97.9, pulse 71, respiratory rate of 18, O2 saturation 93% on room air with blood pressure 136/67. HEENT: Unremarkable. CARDIOVASCULAR SYSTEM: First and second heart sounds were heard. RESPIRATORY: . DIGESTIVE: positive bowel sounds. EXTREMITIES: No peripheral edema. SKIN: No new gross rash. LYMPHATICS: No peripheral lymphadenopathy. IMPRESSION: 1. End-stage renal disease, on hemodialysis. 2. COVID pneumonitis resulting in hypoxic respiratory failure. 3. Hypoxic respiratory failure. 4. Anemia of chronic kidney disease. PLAN: 1. The patient to continue with current schedule of hemodialysis with ultrafiltration as tolerated by hemodynamics. 2. Further management to be dependent on the clinical course. Job ID: [id number]
== END 2020-03-28 16:13 | disposition home or self-care (01) | DRG 177 ==
LOC: ERS 13:35 → T4-B 19:07
PROVIDERS: ADMIT Internal Medicine; ATTEND Internal Medicine
PROC: 8E0ZXY6 Isolation (ICD-10-PCS; principal; 2020-03-25)
PROC: 5A1D70Z Performance of Urinary Filtration, Intermittent, Less than 6 Hours Per Day (ICD-10-PCS; 2020-03-25)
DX: U07.1 COVID-19 (principal); J12.82 Pneumonia due to coronavirus disease 2019; J96.01 Acute respiratory failure with hypoxia; N18.6 End stage renal disease; I50.23 Acute on chronic systolic (congestive) heart failure; I13.2 Hypertensive heart and chronic kidney disease with heart failure and with stage 5 chronic kidney disease, or end stage renal disease; E11.22 Type 2 diabetes mellitus with diabetic chronic kidney disease; I48.0 Paroxysmal atrial fibrillation; I35.0 Nonrheumatic aortic (valve) stenosis; I25.5 Ischemic cardiomyopathy; I25.10 Atherosclerotic heart disease of native coronary artery without angina pectoris; E03.9 Hypothyroidism, unspecified; Z79.51 Long term (current) use of inhaled steroids; Z99.2 Dependence on renal dialysis; Z79.82 Long term (current) use of aspirin; Z79.899 Other long term (current) drug therapy; Z88.0 Allergy status to penicillin; Z88.8 Allergy status to other drugs, medicaments and biological substances; Z95.1 Presence of aortocoronary bypass graft
CPT/HCPCS: 36415; 36416; 71045; 71275; 80048; 80053; 82553; 82728; 83605; 83880; 84484; 85025; 85379; 86140; 87040; 90935; 93005; 96365; 96368; 96375; G0257; J0360; J0456; J0692; J1100; J1200; J1815; J1956; J2920; Q5105; Q9967; S0028

== ENCOUNTER 2020-08-29 11:24 | Emergency (ER) | payer MEDICARE, BC ==
[2020-08-29] MEDS ORDERED: Boostrix 0.5 ML (Tdap) VIAL ONE (14:28)
[2020-08-29] MEDS ORDERED: Bacitracin 1 PK ONE (14:31)
[2020-08-29] MEDS ORDERED: HYDROcodone/Acetaminophen 5/325 mg Tablet ONE (14:44)
== END 2020-08-29 14:45 | disposition home or self-care (01) ==
LOC: ERS 11:24
DX: S80.02XA Contusion of left knee, initial encounter (principal); I10 Essential (primary) hypertension; J45.909 Unspecified asthma, uncomplicated; N18.6 End stage renal disease; Z79.82 Long term (current) use of aspirin; Z79.899 Other long term (current) drug therapy; W18.30XA Fall on same level, unspecified, initial encounter
CPT/HCPCS: 90471; 90715

== ENCOUNTER 2020-12-20 09:00 | Outpatient (CLI) | payer MEDICARE, BC ==
[2020-12-20 21:10] LABS: SARS-CoV-2 PCR by NAA Not Detected (NotDetected)
== END 2020-12-20 09:01 | disposition home or self-care (01) ==
LOC: LABBT 09:00
PROVIDERS: ATTEND Ophthalmology
DX: Z01.812 Encounter for preprocedural laboratory examination (principal); Z20.822 Contact with and (suspected) exposure to COVID-19
CPT/HCPCS: U0003; U0005

== ENCOUNTER 2020-12-24 10:56 | Day surgery (SDC) | payer MEDICARE, BC ==
[2020-12-23 09:29] VITALS: BMI 32.5
[2020-12-24] MEDS ORDERED: Phenylephrine 2.5% Ophth Soln 5 ML BOT ONE (11:06)
== END 2020-12-24 12:25 | disposition home or self-care (01) ==
LOC: SDC 10:56
PROVIDERS: ATTEND Ophthalmology
PROC: 085J3ZZ Destruction of Right Lens, Percutaneous Approach (ICD-10-PCS; principal; 2020-12-24)
DX: H26.491 Other secondary cataract, right eye (principal); Z79.82 Long term (current) use of aspirin; Z79.84 Long term (current) use of oral hypoglycemic drugs; Z79.899 Other long term (current) drug therapy; Z88.0 Allergy status to penicillin; Z88.8 Allergy status to other drugs, medicaments and biological substances

== ENCOUNTER 2021-02-01 22:48 | Emergency (ER) | payer MEDICARE, BC | END 2021-02-02 00:29 | disposition home or self-care (01) | LOC: ERS 22:48 | DX: T82.838A Hemorrhage due to vascular prosthetic devices, implants and grafts, initial encounter (principal); I12.0 Hypertensive chronic kidney disease with stage 5 chronic kidney disease or end stage renal disease; N18.6 End stage renal disease; J45.909 Unspecified asthma, uncomplicated; Z99.2 Dependence on renal dialysis; Z79.82 Long term (current) use of aspirin; Z79.899 Other long term (current) drug therapy | CPT/HCPCS: 99283 ==

== ENCOUNTER 2021-07-24 10:38 | Emergency (ER) | payer MEDICARE, BC ==
[2021-07-24 11:26] LABS: #Basophils 0.1 thou/uL (0.0-0.2); #Eosinphils 0.2 thou/uL (0.0-0.7); #Lymphocytes 0.7 thou/uL (1.20-3.40); #Monocytes 0.6 thou/uL (0.11-0.59); #Neutrophils 3.9 thou/uL (1.40-6.50); %Eosinophils 3.8 % (0.0-10.0); %Lymphocytes 12.1 % (21.0-51.0); %Monocytes 10.6 % (0.0-10.0); %Neutrophils 72.5 % (42.0-75.0); Hemoglobin 11.6 g/dL (12.0-16.0); Mean Corpuscular HGB CONC 32.7 g/dL (32.0-36.0); Mean Corpuscular Hemoglobin 33.4 pg (27.0-31.0); Mean Platelet Volume 9.2 fL (7.4-10.4); Platelet Count 88 thou/uL (130-400); RBC Distribution Width 13.1 % (11.5-14.5); Red Blood Cell (RBC) Count 3.47 mill/uL (4.20-5.40); White Blood Cell (WBC) Count 5.4 thou/uL (4.8-10.8)
[2021-07-24 11:49] LABS: ALT (SGPT) 13 U/L (8-55); AST (SGOT) 20 U/L (5-34); Alkaline Phosphatase 121 U/L (40-110); Anion Gap 15 mmol/L (10-20); BUN (Urea Nitrogen) 37 mg/dL (9.8-20.1); Bilirubin, Total 0.6 mg/dL (0.2-1.2); Calc. Creatinine Clearance 0 mL/min (70-130); Calcium 8.9 mg/dL (7.8-10.44); Carbon Dioxide 31 mmol/L (23-31); Chloride 95 mmol/L (98-107); Globulin 3.5 g/dL (2.4-3.5); Glucose 181 mg/dL (80-115); Lipase 69 U/L (8-78); Potassium 4.4 mmol/L (3.5-5.1); Protein, Total 7.5 g/dL (5.8-8.1); Sodium 137 mmol/L (136-145)
[2021-07-24 14:08] LABS: Protein, Urine (Dipstick) > or equal to 300 mg/dL (Neg-Trace)
[2021-07-24 14:12] LABS: Clarity Cloudy (Clear)
[2021-07-24 14:17] LABS: Nitrite Negative (Negative)
[2021-07-24 14:18] LABS: Glucose, Urine (Dipstick) 250 mg/dL (Negative); Ketone, Urine Negative (Negative)
[2021-07-24 14:19] LABS: Bilirubin Negative (Negative); Blood, Urine Large (Negative); Leukocyte Small Leu/uL (Negative)
[2021-07-24 14:20] LABS: RBC/HPF Greater than 50 HPF (0-3)
[2021-07-24 14:21] LABS: Bacteria/HPF None Seen HPF (None Seen); Transitional Epithelial 0-3 HPF (None Seen)
== END 2021-07-24 15:20 | disposition home or self-care (01) ==
LOC: EEVIPCON 10:38 → ERS 10:38
DX: N39.0 Urinary tract infection, site not specified (principal); E11.22 Type 2 diabetes mellitus with diabetic chronic kidney disease; I12.0 Hypertensive chronic kidney disease with stage 5 chronic kidney disease or end stage renal disease; N18.6 End stage renal disease; Z79.899 Other long term (current) drug therapy
CPT/HCPCS: 36415; 51701; 74176; 80053; 81003; 81015; 83690; 85025

== ENCOUNTER 2021-07-31 12:56 | Inpatient (IN) | payer MEDICARE, BC ==
[2021-07-31 14:26] LABS: #Basophils 0.1 thou/uL (0.0-0.2); #Lymphocytes 0.3 thou/uL (1.20-3.40); #Monocytes 0.3 thou/uL (0.11-0.59); #Neutrophils 6.2 thou/uL (1.40-6.50); %Basophils 0.8 % (0.0-1.0); %Eosinophils 0.2 % (0.0-10.0); %Lymphocytes 4.5 % (21.0-51.0); %Monocytes 4.3 % (0.0-10.0); %Neutrophils 90.2 % (42.0-75.0); Hemoglobin 11.1 g/dL (12.0-16.0); Mean Corpuscular HGB CONC 33.4 g/dL (32.0-36.0); Mean Corpuscular Hemoglobin 33.9 pg (27.0-31.0); Mean Platelet Volume 9.6 fL (7.4-10.4); Platelet Count 63 thou/uL (130-400); RBC Distribution Width 12.9 % (11.5-14.5); Red Blood Cell (RBC) Count 3.26 mill/uL (4.20-5.40); White Blood Cell (WBC) Count 6.9 thou/uL (4.8-10.8)
[2021-07-31 14:43] LABS: ALT (SGPT) 19 U/L (8-55); AST (SGOT) 34 U/L (5-34); Albumin 3.8 g/dL (3.4-4.8); Alkaline Phosphatase 109 U/L (40-110); Anion Gap 18 mmol/L (10-20); BUN (Urea Nitrogen) 26 mg/dL (9.8-20.1); Bilirubin, Total 0.6 mg/dL (0.2-1.2); Calc. Creatinine Clearance 0 mL/min (70-130); Calcium 8.6 mg/dL (7.8-10.44); Carbon Dioxide 27 mmol/L (23-31); Chloride 94 mmol/L (98-107); Globulin 3.4 g/dL (2.4-3.5); Glucose 227 mg/dL (80-115); Potassium 4.8 mmol/L (3.5-5.1); Protein, Total 7.2 g/dL (5.8-8.1); Sodium 134 mmol/L (136-145)
[2021-07-31] MEDS ORDERED: cefTRIAXone\\ROCEPHIN 1 GM VIAL ONE (15:02)
[2021-07-31 15:13] LABS: CKMB 2.7 ng/mL (0-6.6)
[2021-07-31] MEDS ORDERED: Dextrose 5% in Water 1,000 ML IV PRN (16:11)
[2021-07-31] MEDS ORDERED: Dextrose 50% Abboject 50 ML SYRINGE SLOW IVP PRN (16:11)
[2021-07-31] MEDS ORDERED: Ondansetron ODT 4 MG TAB PO PRN (16:12)
[2021-07-31] MEDS ORDERED: Ondansetron PF 4 MG/2 ML Vial IVP PRN (16:12)
[2021-07-31] MEDS ORDERED: Azithromycin 500 MG VIAL ONE (16:45)
[2021-07-31 17:08] LABS: Lactic Acid 1.6 mmol/L (0.5-2.2)
[2021-07-31 18:23] LABS: HBSAg Index 0.17 S/CO (0-0.99); Hep B Core Total Ab Non-Reactive (NonReactive); Hep B Core Total Index 0.09 S/CO (0-0.79); Hep B Surf Ag Non-Reactive S/CO (NonReactive); Hep C IgG Ab Non-Reactive (NonReactive); Hep C Index 0.09 S/CO (0-0.79)
[2021-07-31 18:28] LABS: HBSAB Concentration 14.97 mIU/mL; Hep B Surf AB Reactive (NonReactive)
[2021-07-31 20:32] LABS: Troponin I 4.517 ng/mL (< 0.028)
[2021-07-31 21:35] VITALS: BMI 33.1
[2021-07-31] MEDS ORDERED: Albuterol Sulfate 2.5 mg/3 ml Neb NEB PRN (22:48)
[2021-07-31] MEDS ORDERED: Budesonide 0.5 MG/2 ML NEB NEB PRN (22:48)
[2021-07-31] MEDS: Aspirin 81 mg Enteric Coated Tablet PO SCH (22:49)
[2021-07-31] MEDS: Rosuvastatin 10 MG TAB PO SCH (23:13)
[2021-07-31] MEDS: Carvedilol 25 MG TAB PO SCH (23:13)
[2021-07-31] MEDS ORDERED: hydrALAZINE 10 MG TAB PO SCH (23:15)
[2021-07-31] MEDS ORDERED: Carvedilol 25 MG TAB PO SCH (23:15)
[2021-07-31] MEDS ORDERED: Aspirin 81 mg Enteric Coated Tablet PO SCH (23:15)
[2021-07-31] MEDS ORDERED: glipiZIDE 5 MG TAB PO SCH (23:15)
[2021-07-31] MEDS ORDERED: Rosuvastatin 10 MG TAB PO SCH (23:15)
[2021-07-31 23:19] LABS: SARS-CoV-2 NAA Rapid Test Not Detected (NotDetected)
[2021-08-01 04:58] LABS: Anion Gap 21 mmol/L (10-20); BUN (Urea Nitrogen) 30 mg/dL (9.8-20.1); Calc. Creatinine Clearance 16 mL/min (70-130); Calcium 9.2 mg/dL (7.8-10.44); Carbon Dioxide 25 mmol/L (23-31); Chloride 94 mmol/L (98-107); Critical Call Chem Troponin I RESULT DECREASING; Glucose 313 mg/dL (80-115); Potassium 4.2 mmol/L (3.5-5.1); Sodium 136 mmol/L (136-145)
[2021-08-01 05:00] LABS: #Lymphocytes 0.4 thou/uL (1.20-3.40); #Monocytes 0.2 thou/uL (0.11-0.59); #Neutrophils 5.4 thou/uL (1.40-6.50); %Eosinophils 0.1 % (0.0-10.0); %Lymphocytes 6.6 % (21.0-51.0); %Monocytes 3.5 % (0.0-10.0); %Neutrophils 89.7 % (42.0-75.0); Hemoglobin 10.7 g/dL (12.0-16.0); Mean Corpuscular HGB CONC 34.1 g/dL (32.0-36.0); Mean Corpuscular Hemoglobin 34.2 pg (27.0-31.0); Mean Platelet Volume 9.8 fL (7.4-10.4); Platelet Count 77 thou/uL (130-400); RBC Distribution Width 12.9 % (11.5-14.5); Red Blood Cell (RBC) Count 3.12 mill/uL (4.20-5.40)
[2021-08-01 05:16] LABS: CKMB 3.5 ng/mL (0-6.6)
[2021-08-01] MEDS: HumaLOG 300 UNITS/3 ML VIAL SC PRN (06:04)
[2021-08-01] MEDS ORDERED: Moisturizing Cream (Eucerin) 113 GM JAR TOP PRN (08:10)
[2021-08-01] MEDS ORDERED: hydrALAZINE 20 MG/ML VIAL SLOW IVP PRN (08:10)
[2021-08-01] MEDS ORDERED: Cepastat Lozenges 1 LOZ PO PRN (08:10)
[2021-08-01] MEDS ORDERED: Loperamide HCl 2 MG CAP PO PRN (08:10)
[2021-08-01] MEDS ORDERED: Sodium Chloride 0.65% Nasal 44 ML BOT EA NARE PRN (08:10)
[2021-08-01] MEDS ORDERED: Senokot S 8.6-50 MG TAB PO PRN (08:10)
[2021-08-01] MEDS ORDERED: GUAIFENESIN SF SOLN 200 MG/10 ML UDCUP PO PRN (08:10)
[2021-08-01] MEDS ORDERED: Artificial Tear Sol 15 ML BOT EA EYE PRN (08:10)
[2021-08-01] MEDS ORDERED: Calcium Carbonate 500 MG ChewTAB PO PRN (08:10)
[2021-08-01] MEDS: Ezetimibe 10 MG TAB PO SCH (08:57)
[2021-08-01] MEDS: Sevelamer Carbonate 800 MG TAB PO SCH ×3 (08:57→20:35)
[2021-08-01] MEDS: Prenatal Vitamin 1 TAB PO SCH (08:57)
[2021-08-01] MEDS: Amlodipine 10 MG TAB PO SCH (08:57)
[2021-08-01] MEDS: Folic Acid/Vit B Comp W-C PO SCH (08:58)
[2021-08-01] MEDS: glipiZIDE 5 MG TAB PO SCH ×2 (08:58→20:35)
[2021-08-01] MEDS: hydrALAZINE 10 MG TAB PO SCH ×3 (08:59→20:33)
[2021-08-01] MEDS ORDERED: Aspirin 325 mg Enteric Coated Tablet PO SCH (09:00)
[2021-08-01] MEDS ORDERED: Aspirin 325 MG TAB PO SCH (09:00)
[2021-08-01] MEDS ORDERED: Albuterol Sulfate 2.5 mg/3 ml Neb NEB PRN (13:30)
[2021-08-01] MEDS: cefTRIAXone\\ROCEPHIN 1 GM in Sodium Chloride 0.9% 100 ML IVPB SCH (15:33)
[2021-08-01] MEDS: Azithromycin 500 MG in Sodium Chloride 0.9% 250 ML 250 ML IVPB SCH (18:38)
[2021-08-01] MEDS: Aspirin 81 mg Enteric Coated Tablet PO SCH (20:33)
[2021-08-01] MEDS: Carvedilol 25 MG TAB PO SCH (20:34)
[2021-08-02 04:46] LABS: #Eosinphils 0.1 thou/uL (0.0-0.7); #Monocytes 0.7 thou/uL (0.11-0.59); #Neutrophils 4.6 thou/uL (1.40-6.50); %Basophils 0.5 % (0.0-1.0); %Eosinophils 0.9 % (0.0-10.0); %Monocytes 10.9 % (0.0-10.0); %Neutrophils 72.6 % (42.0-75.0); Hemoglobin 11.8 g/dL (12.0-16.0); Mean Corpuscular HGB CONC 33.2 g/dL (32.0-36.0); Mean Corpuscular Hemoglobin 34.4 pg (27.0-31.0); Mean Platelet Volume 9.7 fL (7.4-10.4); Platelet Count 81 thou/uL (130-400); RBC Distribution Width 12.8 % (11.5-14.5); Red Blood Cell (RBC) Count 3.43 mill/uL (4.20-5.40); White Blood Cell (WBC) Count 6.3 thou/uL (4.8-10.8)
[2021-08-02 04:59] LABS: Anion Gap 16 mmol/L (10-20); BUN (Urea Nitrogen) 45 mg/dL (9.8-20.1); Calc. Creatinine Clearance 18 mL/min (70-130); Calcium 8.9 mg/dL (7.8-10.44); Carbon Dioxide 28 mmol/L (23-31); Chloride 93 mmol/L (98-107); Glucose 163 mg/dL (80-115); Magnesium 2.1 mg/dL (1.6-2.6); Potassium 3.9 mmol/L (3.5-5.1); Sodium 133 mmol/L (136-145)
[2021-08-02 05:00] LABS: Phosphorus 2.9 mg/dL (2.3-4.7)
[2021-08-02] MEDS: Amlodipine 10 MG TAB PO SCH (08:38)
[2021-08-02] MEDS: Carvedilol 25 MG TAB PO SCH ×2 (08:39→21:13)
[2021-08-02] MEDS: Folic Acid/Vit B Comp W-C PO SCH (08:39)
[2021-08-02] MEDS: Prenatal Vitamin 1 TAB PO SCH (08:39)
[2021-08-02] MEDS: Ezetimibe 10 MG TAB PO SCH (08:39)
[2021-08-02] MEDS: hydrALAZINE 10 MG TAB PO SCH ×2 (08:40→21:13)
[2021-08-02] MEDS: Sevelamer Carbonate 800 MG TAB PO SCH ×3 (08:40→21:12)
[2021-08-02] MEDS: glipiZIDE 5 MG TAB PO SCH ×2 (08:40→21:13)
[2021-08-02] MEDS: HumaLOG 300 UNITS/3 ML VIAL SC PRN (13:28)
[2021-08-02] MEDS: cefTRIAXone\\ROCEPHIN 1 GM in Sodium Chloride 0.9% 100 ML IVPB SCH (17:02)
[2021-08-02] MEDS: Azithromycin 500 MG in Sodium Chloride 0.9% 250 ML 250 ML IVPB SCH (17:02)
[2021-08-02] MEDS: Aspirin 81 mg Enteric Coated Tablet PO SCH (21:13)
[2021-08-02] MEDS: Rosuvastatin 10 MG TAB PO SCH (21:13)
[2021-08-02] MEDS: Acetaminophen 325 MG TAB PO PRN (23:00)
[2021-08-03 05:13] LABS: #Eosinphils 0.2 thou/uL (0.0-0.7); #Lymphocytes 0.9 thou/uL (1.20-3.40); #Monocytes 0.6 thou/uL (0.11-0.59); #Neutrophils 4.6 thou/uL (1.40-6.50); %Basophils 0.1 % (0.0-1.0); %Eosinophils 2.6 % (0.0-10.0); %Lymphocytes 14.1 % (21.0-51.0); %Monocytes 9.4 % (0.0-10.0); %Neutrophils 73.9 % (42.0-75.0); Hemoglobin 10.6 g/dL (12.0-16.0); Mean Platelet Volume 9.8 fL (7.4-10.4); Platelet Count 83 thou/uL (130-400); RBC Distribution Width 12.7 % (11.5-14.5); Red Blood Cell (RBC) Count 3.03 mill/uL (4.20-5.40); White Blood Cell (WBC) Count 6.3 thou/uL (4.8-10.8)
[2021-08-03 05:23] LABS: Anion Gap 17 mmol/L (10-20); BUN (Urea Nitrogen) 74 mg/dL (9.8-20.1); Calc. Creatinine Clearance 12 mL/min (70-130); Calcium 8.5 mg/dL (7.8-10.44); Carbon Dioxide 28 mmol/L (23-31); Chloride 93 mmol/L (98-107); Glucose 172 mg/dL (80-115); Potassium 3.9 mmol/L (3.5-5.1); Sodium 134 mmol/L (136-145)
[2021-08-03 05:28] LABS: Critical Call Chem Troponin I RESULT DECREASING; Troponin I 2.421 ng/mL (< 0.028)
[2021-08-03] MEDS: HumaLOG 300 UNITS/3 ML VIAL SC PRN ×2 (06:02→17:38)
[2021-08-03] MEDS: Folic Acid/Vit B Comp W-C PO SCH (09:45)
[2021-08-03] MEDS: Sevelamer Carbonate 800 MG TAB PO SCH ×2 (09:45→16:42)
[2021-08-03] MEDS: hydrALAZINE 10 MG TAB PO SCH ×2 (09:46→19:45)
[2021-08-03] MEDS: Carvedilol 25 MG TAB PO SCH ×2 (09:46→19:46)
[2021-08-03] MEDS: Prenatal Vitamin 1 TAB PO SCH (09:46)
[2021-08-03] MEDS: Amlodipine 10 MG TAB PO SCH (09:47)
[2021-08-03] MEDS: Ezetimibe 10 MG TAB PO SCH (09:47)
[2021-08-03] MEDS: glipiZIDE 5 MG TAB PO SCH ×2 (09:47→16:38)
[2021-08-03] MEDS ORDERED: Sevelamer Carbonate 800 MG TAB PO SCH (13:15)
[2021-08-03] MEDS: cefTRIAXone\\ROCEPHIN 1 GM in Sodium Chloride 0.9% 100 ML IVPB SCH (16:37)
[2021-08-03] MEDS ORDERED: Azithromycin 250 MG TAB PO SCH (17:00)
[2021-08-03] MEDS: Aspirin 81 mg Enteric Coated Tablet PO SCH (19:45)
[2021-08-03] MEDS: Rosuvastatin 10 MG TAB PO SCH (19:45)
[2021-08-03] MEDS: Acetaminophen 325 MG TAB PO PRN (19:46)
[2021-08-04 05:23] LABS: #Eosinphils 0.4 thou/uL (0.0-0.7); #Lymphocytes 0.9 thou/uL (1.20-3.40); #Monocytes 0.5 thou/uL (0.11-0.59); #Neutrophils 3.9 thou/uL (1.40-6.50); %Basophils 0.1 % (0.0-1.0); %Eosinophils 6.6 % (0.0-10.0); %Lymphocytes 15.6 % (21.0-51.0); %Monocytes 8.5 % (0.0-10.0); %Neutrophils 69.1 % (42.0-75.0); Hemoglobin 10.9 g/dL (12.0-16.0); Mean Corpuscular HGB CONC 33.9 g/dL (32.0-36.0); Mean Corpuscular Hemoglobin 34.6 pg (27.0-31.0); Mean Platelet Volume 9.1 fL (7.4-10.4); Platelet Count 93 thou/uL (130-400); RBC Distribution Width 12.8 % (11.5-14.5); Red Blood Cell (RBC) Count 3.16 mill/uL (4.20-5.40); White Blood Cell (WBC) Count 5.7 thou/uL (4.8-10.8)
[2021-08-04 05:45] LABS: Anion Gap 22 mmol/L (10-20); BUN (Urea Nitrogen) 94 mg/dL (9.8-20.1); Calc. Creatinine Clearance 9 mL/min (70-130); Calcium 9.1 mg/dL (7.8-10.44); Carbon Dioxide 21 mmol/L (23-31); Cardiac Risk 5.5 (Less than 4.5); Chloride 94 mmol/L (98-107); Cholesterol 122 mg/dl (< 200 Desired); Glucose 188 mg/dL (80-115); HDL Cholesterol 22 mg/dL (>60 Neg Risk); LDL Cholesterol, Calculated 34 mg/dL; Potassium 4.1 mmol/L (3.5-5.1); Sodium 133 mmol/L (136-145); Triglycerides 330 mg/dL (Less than 150)
[2021-08-04] MEDS: hydrALAZINE 10 MG TAB PO SCH ×2 (06:27→21:44)
[2021-08-04] MEDS: Sevelamer Carbonate 800 MG TAB PO SCH ×3 (06:28→16:59)
[2021-08-04] MEDS: Folic Acid/Vit B Comp W-C PO SCH (06:28)
[2021-08-04] MEDS: Prenatal Vitamin 1 TAB PO SCH (06:28)
[2021-08-04] MEDS: Ezetimibe 10 MG TAB PO SCH (06:28)
[2021-08-04] MEDS: Amlodipine 10 MG TAB PO SCH (06:28)
[2021-08-04] MEDS: Carvedilol 25 MG TAB PO SCH ×2 (06:28→21:48)
[2021-08-04] MEDS: glipiZIDE 5 MG TAB PO SCH ×2 (06:29→16:58)
[2021-08-04] MEDS: HumaLOG 300 UNITS/3 ML VIAL SC PRN ×3 (06:29→21:44)
[2021-08-04] MEDS: cefTRIAXone\\ROCEPHIN 1 GM in Sodium Chloride 0.9% 100 ML IVPB SCH (16:58)
[2021-08-04] MEDS ORDERED: Communication Order-Pharmacy FS SCH (18:00)
[2021-08-04] MEDS: Aspirin 81 mg Enteric Coated Tablet PO SCH (21:44)
[2021-08-04] MEDS: Rosuvastatin 10 MG TAB PO SCH (21:45)
[2021-08-05] MEDS: Amlodipine 10 MG TAB PO SCH (05:50)
[2021-08-05] MEDS: Carvedilol 25 MG TAB PO SCH ×2 (05:50→20:18)
[2021-08-05] MEDS: Ezetimibe 10 MG TAB PO SCH (05:50)
[2021-08-05] MEDS: Folic Acid/Vit B Comp W-C PO SCH (05:50)
[2021-08-05] MEDS: hydrALAZINE 10 MG TAB PO SCH ×2 (05:51→20:18)
[2021-08-05] MEDS ORDERED: Heparin 10,000 UNITS/ 10 ML VIAL ONE (07:12)
[2021-08-05] MEDS ORDERED: Midazolam HCl 2 mg/2 ml Vial ONE (07:14)
[2021-08-05] MEDS ORDERED: Fentanyl 100 MCG/2 ML VIAL ONE (07:15)
[2021-08-05] MEDS: glipiZIDE 5 MG TAB PO SCH ×2 (07:20→16:26)
[2021-08-05] MEDS: Prenatal Vitamin 1 TAB PO SCH (07:20)
[2021-08-05] MEDS: Sevelamer Carbonate 800 MG TAB PO SCH ×3 (07:20→16:26)
[2021-08-05 08:47] LABS: Anion Gap 14 mmol/L (10-20); BUN (Urea Nitrogen) 50 mg/dL (9.8-20.1); Calc. Creatinine Clearance 13 mL/min (70-130); Calcium 8.2 mg/dL (7.8-10.44); Carbon Dioxide 28 mmol/L (23-31); Chloride 96 mmol/L (98-107); Glucose 196 mg/dL (80-115); Potassium 3.9 mmol/L (3.5-5.1); Sodium 134 mmol/L (136-145)
[2021-08-05 08:54] LABS: #Eosinphils 0.2 thou/uL (0.0-0.7); #Lymphocytes 0.6 thou/uL (1.20-3.40); #Monocytes 0.3 thou/uL (0.11-0.59); #Neutrophils 3.7 thou/uL (1.40-6.50); %Basophils 0.5 % (0.0-1.0); %Eosinophils 4.7 % (0.0-10.0); %Lymphocytes 12.6 % (21.0-51.0); %Monocytes 5.4 % (0.0-10.0); %Neutrophils 76.9 % (42.0-75.0); Hemoglobin 8.4 g/dL (12.0-16.0); MDiff Complete? YES; Mean Corpuscular HGB CONC 33.4 g/dL (32.0-36.0); Mean Corpuscular Hemoglobin 33.8 pg (27.0-31.0); Mean Platelet Volume 8.3 fL (7.4-10.4); Platelet Count 70 thou/uL (130-400); Platelet Morphology Comment Appears Decreased; Polychromasia SLIGHT = 2-3 cells (100X) (0-2/hpf); RBC Distribution Width 13.1 % (11.5-14.5); Red Blood Cell (RBC) Count 2.47 mill/uL (4.20-5.40); White Blood Cell (WBC) Count 4.8 thou/uL (4.8-10.8)
[2021-08-05] MEDS ORDERED: Sodium Chloride 0.9% 200 ML IV PRN (09:14)
[2021-08-05] MEDS ORDERED: Acetaminophen/Codeine 30-300mg Tablet PO PRN ×2 (09:14)
[2021-08-05] MEDS ORDERED: Nitroglycerin 0.4 MG TAB (25 Tab Bottle) SL PRN (09:14)
[2021-08-05 11:21] LABS: Iron 87 ug/dL (50-170)
[2021-08-05 11:27] LABS: Iron Binding Capacity, Total 193 mcg/dL (265-497)
[2021-08-05] MEDS ORDERED: Iopamidol 370 76% 100 ML VIAL ONE (12:39)
[2021-08-05] MEDS ORDERED: Iopamidol 370 76% 50 ML VIAL FS ONE (12:39)
[2021-08-05] MEDS: cefTRIAXone\\ROCEPHIN 1 GM in Sodium Chloride 0.9% 100 ML IVPB SCH (16:25)
[2021-08-05] MEDS: Aspirin 81 mg Enteric Coated Tablet PO SCH (20:18)
[2021-08-05] MEDS: Rosuvastatin 10 MG TAB PO SCH (20:19)
[2021-08-05] MEDS: HumaLOG 300 UNITS/3 ML VIAL SC PRN (21:00)
[2021-08-06] MEDS: Acetaminophen 325 MG TAB PO PRN (01:05)
[2021-08-06 04:41] LABS: #Eosinphils 0.3 thou/uL (0.0-0.7); #Lymphocytes 0.6 thou/uL (1.20-3.40); #Monocytes 0.4 thou/uL (0.11-0.59); %Basophils 0.5 % (0.0-1.0); %Eosinophils 5.1 % (0.0-10.0); %Lymphocytes 11.5 % (21.0-51.0); Hemoglobin 8.2 g/dL (12.0-16.0); Mean Corpuscular HGB CONC 33.8 g/dL (32.0-36.0); Mean Corpuscular Hemoglobin 34.7 pg (27.0-31.0); Platelet Count 72 thou/uL (130-400); RBC Distribution Width 12.9 % (11.5-14.5); Red Blood Cell (RBC) Count 2.35 mill/uL (4.20-5.40); White Blood Cell (WBC) Count 5.4 thou/uL (4.8-10.8)
[2021-08-06 04:59] LABS: Anion Gap 17 mmol/L (10-20); BUN (Urea Nitrogen) 60 mg/dL (9.8-20.1); Calc. Creatinine Clearance 10 mL/min (70-130); Calcium 8.5 mg/dL (7.8-10.44); Carbon Dioxide 25 mmol/L (23-31); Chloride 97 mmol/L (98-107); Glucose 187 mg/dL (80-115); Potassium 4.5 mmol/L (3.5-5.1); Sodium 134 mmol/L (136-145)
[2021-08-06] MEDS: HumaLOG 300 UNITS/3 ML VIAL SC PRN (06:01)
[2021-08-06] MEDS ORDERED: Epoetin (ESRD) 10,000 UNITS/ML VIAL SC SCH ×2 (06:30→14:30)
[2021-08-06] MEDS ORDERED: Doxycycline 100 MG CAP PO SCH (09:00)
[2021-08-06] MEDS: hydrALAZINE 10 MG TAB PO SCH (09:50)
[2021-08-06] MEDS: Sevelamer Carbonate 800 MG TAB PO SCH ×2 (09:50→13:15)
[2021-08-06] MEDS: glipiZIDE 5 MG TAB PO SCH (09:50)
[2021-08-06] MEDS: Carvedilol 25 MG TAB PO SCH (09:50)
[2021-08-06] MEDS ORDERED: EPOETIN ALFA-EPBX (ESRD) 10,000 UNIT/ML VIAL SC SCH (12:00)
[2021-08-06 13:13] VITALS: BP 155/72; TEMP 99
[2021-08-06] MEDS: Ezetimibe 10 MG TAB PO SCH (14:19)
[2021-08-06] MEDS: Amlodipine 10 MG TAB PO SCH (14:19)
[2021-08-06] MEDS: Folic Acid/Vit B Comp W-C PO SCH (14:19)
[2021-08-06] MEDS: Prenatal Vitamin 1 TAB PO SCH (14:19)
== END 2021-08-06 14:48 | disposition home or self-care (01) | DRG 280 ==
LOC: ERS 12:56 → 2NO 15:14
PROVIDERS: ADMIT Internal Medicine; ATTEND Internal Medicine
PROC: 5A1D70Z Performance of Urinary Filtration, Intermittent, Less than 6 Hours Per Day (ICD-10-PCS; principal; 2021-08-01)
PROC: 4A023N7 Measurement of Cardiac Sampling and Pressure, Left Heart, Percutaneous Approach (ICD-10-PCS; 2021-08-05)
PROC: B2111ZZ Fluoroscopy of Multiple Coronary Arteries using Low Osmolar Contrast (ICD-10-PCS; 2021-08-05)
PROC: B2151ZZ Fluoroscopy of Left Heart using Low Osmolar Contrast (ICD-10-PCS; 2021-08-05)
DX: I21.4 Non-ST elevation (NSTEMI) myocardial infarction (principal); N18.6 End stage renal disease; J96.01 Acute respiratory failure with hypoxia; I50.23 Acute on chronic systolic (congestive) heart failure; J15.6 Pneumonia due to other Gram-negative bacteria; I13.2 Hypertensive heart and chronic kidney disease with heart failure and with stage 5 chronic kidney disease, or end stage renal disease; N39.0 Urinary tract infection, site not specified; J44.0 Chronic obstructive pulmonary disease with (acute) lower respiratory infection; N25.81 Secondary hyperparathyroidism of renal origin; E11.22 Type 2 diabetes mellitus with diabetic chronic kidney disease; E78.5 Hyperlipidemia, unspecified; D63.1 Anemia in chronic kidney disease; I48.0 Paroxysmal atrial fibrillation; E66.9 Obesity, unspecified; I25.5 Ischemic cardiomyopathy; I25.10 Atherosclerotic heart disease of native coronary artery without angina pectoris; Z99.2 Dependence on renal dialysis; Z95.1 Presence of aortocoronary bypass graft; Z98.42 Cataract extraction status, left eye; Z98.41 Cataract extraction status, right eye; Z88.2 Allergy status to sulfonamides; Z88.1 Allergy status to other antibiotic agents; Z88.8 Allergy status to other drugs, medicaments and biological substances; Z79.82 Long term (current) use of aspirin; Z79.899 Other long term (current) drug therapy; Z79.84 Long term (current) use of oral hypoglycemic drugs; Z79.51 Long term (current) use of inhaled steroids; Z95.810 Presence of automatic (implantable) cardiac defibrillator; Z90.710 Acquired absence of both cervix and uterus; Z68.33 Body mass index [BMI] 33.0-33.9, adult; I08.1 Rheumatic disorders of both mitral and tricuspid valves
CPT/HCPCS: 36415; 36416; 71045; 80048; 80053; 80061; 82553; 82728; 83540; 83550; 83605; 83735; 83880; 84100; 84145; 84484; 85025; 85347; 86704; 86706; 86803; 87040; 87340; 90935; 93005; 93306; 93455; 93798; 94640; 96365; 96367; 99152; 99153; G0257; J0456; J0696; J1644; J1815; J2250; J3010; J3490; J7050; J7611; Q4081; Q9967; U0002

== ENCOUNTER 2021-09-07 19:56 | Emergency (ER) | payer MEDICARE, BC ==
[2021-09-07 20:26] LABS: #Eosinphils 0.2 thou/uL (0.0-0.7); #Lymphocytes 0.7 thou/uL (1.20-3.40); #Monocytes 0.5 thou/uL (0.11-0.59); #Neutrophils 3.9 thou/uL (1.40-6.50); %Basophils 0.3 % (0.0-1.0); %Lymphocytes 13.4 % (21.0-51.0); %Monocytes 8.8 % (0.0-10.0); %Neutrophils 73.6 % (42.0-75.0); Hemoglobin 10.7 g/dL (12.0-16.0); Mean Corpuscular HGB CONC 33.8 g/dL (32.0-36.0); Mean Corpuscular Hemoglobin 36.3 pg (27.0-31.0); Mean Platelet Volume 9.6 fL (7.4-10.4); Platelet Count 72 thou/uL (130-400); RBC Distribution Width 14.9 % (11.5-14.5); Red Blood Cell (RBC) Count 2.95 mill/uL (4.20-5.40); White Blood Cell (WBC) Count 5.3 thou/uL (4.8-10.8)
[2021-09-07 20:44] LABS: ALT (SGPT) 15 U/L (8-55); AST (SGOT) 20 U/L (5-34); Alkaline Phosphatase 120 U/L (40-110); Anion Gap 19 mmol/L (10-20); BUN (Urea Nitrogen) 49 mg/dL (9.8-20.1); Bilirubin, Total 0.6 mg/dL (0.2-1.2); Calc. Creatinine Clearance 0 mL/min (70-130); Calcium 9.4 mg/dL (7.8-10.44); Carbon Dioxide 27 mmol/L (23-31); Chloride 96 mmol/L (98-107); Estimated GFR 6; Globulin 3.5 g/dL (2.4-3.5); Glucose 178 mg/dL (80-115); Potassium 4.2 mmol/L (3.5-5.1); Protein, Total 7.5 g/dL (5.8-8.1); Sodium 138 mmol/L (136-145)
[2021-09-07 20:45] LABS: Anisocytosis SLIGHT = 6-15 cells (100X) (0-5/hpf); MDiff Complete? YES; Macrocytosis MODERATE=16-30 cells (100X) (0-5/hpf); Ovalocytes SLIGHT = 2-5 cells (100X) (0-1/hpf); Platelet Morphology Comment Appears Decreased
== END 2021-09-07 23:04 | disposition home or self-care (01) ==
LOC: ERS 19:56
DX: E11.22 Type 2 diabetes mellitus with diabetic chronic kidney disease (principal); I12.0 Hypertensive chronic kidney disease with stage 5 chronic kidney disease or end stage renal disease; N18.6 End stage renal disease; R07.89 Other chest pain; R00.2 Palpitations; Z99.2 Dependence on renal dialysis; Z79.899 Other long term (current) drug therapy
CPT/HCPCS: 71045; 80053; 82553; 84484; 85025; 93005; 94760

== ENCOUNTER 2021-10-03 02:55 | Emergency (ER) | payer MEDICARE, BC ==
[2021-10-03 03:50] LABS: Hemoglobin 11.2 g/dL (12.0-16.0); Mean Corpuscular HGB CONC 33.8 g/dL (32.0-36.0); Mean Corpuscular Hemoglobin 35.3 pg (27.0-31.0); RBC Distribution Width 13.7 % (11.5-14.5); Red Blood Cell (RBC) Count 3.18 mill/uL (4.20-5.40); White Blood Cell (WBC) Count 7.4 thou/uL (4.8-10.8)
[2021-10-03 03:58] LABS: ALT (SGPT) 13 U/L (8-55); AST (SGOT) 19 U/L (5-34); Albumin 3.9 g/dL (3.4-4.8); Alkaline Phosphatase 121 U/L (40-110); Anion Gap 19 mmol/L (10-20); BUN (Urea Nitrogen) 39 mg/dL (9.8-20.1); Bilirubin, Total 0.6 mg/dL (0.2-1.2); Calc. Creatinine Clearance 0 mL/min (70-130); Carbon Dioxide 28 mmol/L (23-31); Chloride 96 mmol/L (98-107); Estimated GFR 6; Globulin 3.3 g/dL (2.4-3.5); Glucose 230 mg/dL (80-115); Potassium 4.4 mmol/L (3.5-5.1); Protein, Total 7.2 g/dL (5.8-8.1); Sodium 139 mmol/L (136-145)
[2021-10-03 04:22] LABS: #Basophils 0.1 thou/uL (0.0-0.2); #Eosinphils 0.2 thou/uL (0.0-0.7); #Lymphocytes 0.6 thou/uL (1.20-3.40); #Monocytes 0.5 thou/uL (0.11-0.59); %Basophils 0.8 % (0.0-1.0); %Eosinophils 3.4 % (0.0-10.0); %Lymphocytes 7.9 % (21.0-51.0); %Monocytes 6.4 % (0.0-10.0); %Neutrophils 81.6 % (42.0-75.0); Mean Platelet Volume 9.1 fL (7.4-10.4); Platelet Count 83 thou/uL (130-400)
[2021-10-03 04:31] LABS: Platelet Morphology Comment Appears Decreased
== END 2021-10-03 13:33 | disposition home or self-care (01) ==
LOC: ERS 03:04
DX: E87.70 Fluid overload, unspecified (principal); E11.22 Type 2 diabetes mellitus with diabetic chronic kidney disease; I12.0 Hypertensive chronic kidney disease with stage 5 chronic kidney disease or end stage renal disease; N18.6 End stage renal disease; R09.02 Hypoxemia; Z99.2 Dependence on renal dialysis; Z79.82 Long term (current) use of aspirin; Z79.899 Other long term (current) drug therapy
CPT/HCPCS: 36415; 71045; 80053; 82553; 83880; 84484; 85025; 93005

== ENCOUNTER 2022-01-10 20:18 | Inpatient (IN) | payer MEDICARE, BC ==
[2022-01-10 21:07] LABS: #Eosinphils 0.2 thou/uL (0.0-0.7); #Lymphocytes 0.5 thou/uL (1.20-3.40); #Monocytes 0.4 thou/uL (0.11-0.59); #Neutrophils 5.7 thou/uL (1.40-6.50); %Eosinophils 2.7 % (0.0-10.0); %Lymphocytes 7.4 % (21.0-51.0); %Neutrophils 83.9 % (42.0-75.0); Hemoglobin 9.1 g/dL (12.0-16.0); Mean Corpuscular HGB CONC 34.1 g/dL (32.0-36.0); Mean Corpuscular Hemoglobin 34.6 pg (27.0-31.0); Mean Platelet Volume 8.9 fL (7.4-10.4); Platelet Count 90 10x3/uL (130-400); RBC Distribution Width 13.2 % (11.5-14.5); Red Blood Cell (RBC) Count 2.63 mill/uL (4.20-5.40); White Blood Cell (WBC) Count 6.8 10x3/uL (4.8-10.8)
[2022-01-10] MEDS ORDERED: Dexamethasone 4 mg/ml Vial ONE (21:12)
[2022-01-10] MEDS ORDERED: Albuterol Sulfate 2.5 mg/0.5 ml Neb ONE (21:12)
[2022-01-10 21:22] LABS: ALT (SGPT) 11 U/L (8-55); AST (SGOT) 15 U/L (5-34); Albumin 3.5 g/dL (3.4-4.8); Alkaline Phosphatase 117 U/L (40-110); Anion Gap 16 mmol/L (10-20); BUN (Urea Nitrogen) 33 mg/dL (9.8-20.1); Bilirubin, Total 0.6 mg/dL (0.2-1.2); Calc. Creatinine Clearance 0 mL/min (70-130); Calcium 9.8 mg/dL (7.8-10.44); Carbon Dioxide 30 mmol/L (23-31); Chloride 96 mmol/L (98-107); Estimated GFR 9; Globulin 3.6 g/dL (2.4-3.5); Glucose 200 mg/dL (80-115); Protein, Total 7.1 g/dL (5.8-8.1); Sodium 138 mmol/L (136-145)
[2022-01-10 21:47] LABS: CKMB 1.9 ng/mL (0-6.6)
[2022-01-10] MEDS ORDERED: Ondansetron PF 4 MG/2 ML Vial IVP PRN (23:08)
[2022-01-10] MEDS ORDERED: Acetaminophen 325 MG TAB PO PRN (23:08)
[2022-01-10] MEDS ORDERED: HumaLOG 300 UNITS/3 ML VIAL SC PRN (23:13)
[2022-01-10] MEDS ORDERED: Dextrose 5% in Water 1,000 ML IV PRN (23:13)
[2022-01-10] MEDS ORDERED: Dextrose 50% Abboject 50 ML SYRINGE SLOW IVP PRN (23:13)
[2022-01-11 01:09] LABS: SARS-CoV-2 NAA Rapid Test Not Detected (NotDetected)
[2022-01-11 01:36] LABS: Troponin I 1.037 ng/mL (< 0.028)
[2022-01-11 01:57] VITALS: BMI 37.5
[2022-01-11 05:02] LABS: #Lymphocytes 0.2 thou/uL (1.20-3.40); #Monocytes 0.1 thou/uL (0.11-0.59); #Neutrophils 5.8 thou/uL (1.40-6.50); %Basophils 0.3 % (0.0-1.0); %Eosinophils 0.4 % (0.0-10.0); %Lymphocytes 2.9 % (21.0-51.0); %Monocytes 1.2 % (0.0-10.0); %Neutrophils 95.2 % (42.0-75.0); Hemoglobin 8.9 g/dL (12.0-16.0); Mean Corpuscular HGB CONC 33.1 g/dL (32.0-36.0); Mean Corpuscular Hemoglobin 33.6 pg (27.0-31.0); Mean Platelet Volume 8.9 fL (7.4-10.4); Platelet Count 91 10x3/uL (130-400); RBC Distribution Width 13.2 % (11.5-14.5); Red Blood Cell (RBC) Count 2.64 mill/uL (4.20-5.40); White Blood Cell (WBC) Count 6.1 10x3/uL (4.8-10.8)
[2022-01-11 05:37] LABS: Anion Gap 17 mmol/L (10-20); BUN (Urea Nitrogen) 39 mg/dL (9.8-20.1); Calc. Creatinine Clearance 15 mL/min (70-130); Calcium 9.7 mg/dL (7.8-10.44); Carbon Dioxide 28 mmol/L (23-31); Chloride 95 mmol/L (98-107); Estimated GFR 8; Glucose 213 mg/dL (80-115); Potassium 4.7 mmol/L (3.5-5.1); Sodium 135 mmol/L (136-145)
[2022-01-11 05:39] LABS: Critical Call Chem Troponin I RESULT DECREASING; Troponin I 0.953 ng/mL (< 0.028)
[2022-01-11] MEDS: HumaLOG 300 UNITS/3 ML VIAL SC PRN ×2 (06:07→12:02)
[2022-01-11] MEDS ORDERED: Nitroglycerin 0.4 MG TAB (25 Tab Bottle) SL PRN (07:22)
[2022-01-11] MEDS ORDERED: Budesonide 0.5 MG/2 ML NEB NEB PRN (07:30)
[2022-01-11] MEDS ORDERED: Ezetimibe 10 MG TAB PO SCH (09:00)
[2022-01-11] MEDS ORDERED: Amlodipine 10 MG TAB PO SCH (09:00)
[2022-01-11] MEDS ORDERED: hydrALAZINE 25 MG TAB PO SCH (09:00)
[2022-01-11] MEDS ORDERED: Carvedilol 25 MG TAB PO SCH (09:00)
[2022-01-11] MEDS: Sevelamer Carbonate 800 MG TAB PO SCH ×3 (09:15→16:54)
[2022-01-11] MEDS ORDERED: glipiZIDE 5 MG TAB PO SCH (16:30)
[2022-01-11 20:03] VITALS: BP 116/53; TEMP 98.2
[2022-01-11] MEDS ORDERED: Rosuvastatin 20 MG TAB PO SCH (21:00)
== END 2022-01-11 19:05 | disposition home or self-care (01) | DRG 280 ==
LOC: ERS 20:18 → 2NO 22:52
PROVIDERS: ADMIT Internal Medicine; ATTEND Internal Medicine
DX: I13.2 Hypertensive heart and chronic kidney disease with heart failure and with stage 5 chronic kidney disease, or end stage renal disease (principal); I50.23 Acute on chronic systolic (congestive) heart failure; I21.A1 Myocardial infarction type 2; J96.01 Acute respiratory failure with hypoxia; N18.6 End stage renal disease; J18.9 Pneumonia, unspecified organism; J45.21 Mild intermittent asthma with (acute) exacerbation; E11.22 Type 2 diabetes mellitus with diabetic chronic kidney disease; Z20.822 Contact with and (suspected) exposure to COVID-19; J45.909 Unspecified asthma, uncomplicated; D63.1 Anemia in chronic kidney disease; I25.10 Atherosclerotic heart disease of native coronary artery without angina pectoris; Z99.2 Dependence on renal dialysis; Z90.710 Acquired absence of both cervix and uterus; Z95.1 Presence of aortocoronary bypass graft; Z88.0 Allergy status to penicillin; Z88.1 Allergy status to other antibiotic agents; Z88.2 Allergy status to sulfonamides; Z88.8 Allergy status to other drugs, medicaments and biological substances; Z79.51 Long term (current) use of inhaled steroids; Z79.82 Long term (current) use of aspirin; Z79.84 Long term (current) use of oral hypoglycemic drugs; Z79.899 Other long term (current) drug therapy
CPT/HCPCS: 36415; 36416; 71045; 80048; 80053; 82553; 83735; 83880; 84443; 84484; 85025; 93005; 94640; J1100; J1815; J1956; J7611; J7620

== ENCOUNTER 2022-01-12 08:26 | Inpatient (IN) | payer MEDICARE, BC ==
[2022-01-12 09:20] LABS: #Eosinphils 0.2 thou/uL (0.0-0.7); #Lymphocytes 0.6 thou/uL (1.20-3.40); #Monocytes 0.4 thou/uL (0.11-0.59); #Neutrophils 7.1 thou/uL (1.40-6.50); %Eosinophils 2.3 % (0.0-10.0); %Lymphocytes 7.1 % (21.0-51.0); %Monocytes 5.1 % (0.0-10.0); %Neutrophils 85.4 % (42.0-75.0); Hemoglobin 8.5 g/dL (12.0-16.0); Mean Corpuscular HGB CONC 33.8 g/dL (32.0-36.0); Mean Corpuscular Hemoglobin 34.3 pg (27.0-31.0); Mean Platelet Volume 9.1 fL (7.4-10.4); Platelet Count 111 10x3/uL (130-400); RBC Distribution Width 13.4 % (11.5-14.5); Red Blood Cell (RBC) Count 2.49 mill/uL (4.20-5.40); White Blood Cell (WBC) Count 8.4 10x3/uL (4.8-10.8)
[2022-01-12 09:36] LABS: ALT (SGPT) 12 U/L (8-55); Albumin 3.6 g/dL (3.4-4.8); Alkaline Phosphatase 107 U/L (40-110); BUN (Urea Nitrogen) 81 mg/dL (9.8-20.1); Bilirubin, Total 0.5 mg/dL (0.2-1.2); Calc. Creatinine Clearance 0 mL/min (70-130); Calcium 9.6 mg/dL (7.8-10.44); Carbon Dioxide 22 mmol/L (23-31); Chloride 90 mmol/L (98-107); Estimated GFR 5; Glucose 211 mg/dL (80-115); Sodium 131 mmol/L (136-145)
[2022-01-12] MEDS ORDERED: Cefepime 2 GM VIAL ONE (09:56)
[2022-01-12 09:57] LABS: AST (SGOT) 15 U/L (5-34); Globulin 3.7 g/dL (2.4-3.5); Potassium 5.1 mmol/L (3.5-5.1); Protein, Total 7.3 g/dL (5.8-8.1)
[2022-01-12 10:00] LABS: Anion Gap 24 mmol/L (10-20); CKMB 2.1 ng/mL (0-6.6)
[2022-01-12] MEDS ORDERED: Vancomycin 1 GM/200 ML (FROZEN) BAG ONE (10:42)
[2022-01-12] MEDS ORDERED: Acetaminophen 325 MG TAB PO PRN (11:04)
[2022-01-12] MEDS ORDERED: Nitroglycerin 0.4 MG TAB (25 Tab Bottle) SL PRN (11:09)
[2022-01-12] MEDS ORDERED: Budesonide 0.5 MG/2 ML NEB NEB PRN (11:09)
[2022-01-12 13:04] LABS: Troponin I 0.655 ng/mL (< 0.028)
[2022-01-12 14:07] VITALS: BMI 33.3
[2022-01-12] MEDS: cefTRIAXone\\ROCEPHIN 1 GM in Sodium Chloride 0.9% 100 ML IVPB SCH (14:42)
[2022-01-12] MEDS: Sevelamer Carbonate 800 MG TAB PO SCH ×2 (14:42→17:33)
[2022-01-12 16:04] LABS: Critical Call Chem Troponin I RESULT DECREASING; Troponin I 0.602 ng/mL (< 0.028)
[2022-01-12] MEDS ORDERED: hydrALAZINE 25 MG TAB PO SCH (21:00)
[2022-01-12] MEDS: Rosuvastatin 20 MG TAB PO SCH (21:27)
[2022-01-12] MEDS: glipiZIDE 5 MG TAB PO SCH (21:27)
[2022-01-12] MEDS: Carvedilol 25 MG TAB PO SCH (21:27)
[2022-01-12] MEDS ORDERED: hydrOXYzine Pamoate 25 mg Capsule PO SCH (21:30)
[2022-01-12] MEDS: Azithromycin 500 MG in Sodium Chloride 0.9% 250 ML 250 ML IVPB SCH (21:35)
[2022-01-13] MEDS ORDERED: Cepastat Lozenges 1 LOZ PO PRN (01:08)
[2022-01-13] MEDS ORDERED: Benzonatate 100 MG CAP PO PRN (01:08)
[2022-01-13 05:14] LABS: #Eosinphils 0.4 thou/uL (0.0-0.7); #Lymphocytes 0.5 thou/uL (1.20-3.40); #Monocytes 0.5 thou/uL (0.11-0.59); #Neutrophils 4.7 thou/uL (1.40-6.50); %Eosinophils 6.3 % (0.0-10.0); %Lymphocytes 8.7 % (21.0-51.0); %Monocytes 7.4 % (0.0-10.0); %Neutrophils 77.5 % (42.0-75.0); Hemoglobin 7.9 g/dL (12.0-16.0); Mean Corpuscular HGB CONC 33.9 g/dL (32.0-36.0); Mean Corpuscular Hemoglobin 34.3 pg (27.0-31.0); Mean Platelet Volume 8.6 fL (7.4-10.4); Platelet Count 98 10x3/uL (130-400); RBC Distribution Width 13.5 % (11.5-14.5); Red Blood Cell (RBC) Count 2.29 mill/uL (4.20-5.40); White Blood Cell (WBC) Count 6.1 10x3/uL (4.8-10.8)
[2022-01-13 05:23] LABS: Anion Gap 15 mmol/L (10-20); BUN (Urea Nitrogen) 44 mg/dL (9.8-20.1); Calc. Creatinine Clearance 15 mL/min (70-130); Calcium 8.9 mg/dL (7.8-10.44); Carbon Dioxide 29 mmol/L (23-31); Chloride 96 mmol/L (98-107); Estimated GFR 9; Glucose 143 mg/dL (80-115); Sodium 136 mmol/L (136-145)
[2022-01-13] MEDS ORDERED: Amlodipine 10 MG TAB PO SCH (09:00)
[2022-01-13] MEDS: Aspirin 325 MG TAB PO SCH (09:22)
[2022-01-13] MEDS: Sevelamer Carbonate 800 MG TAB PO SCH ×3 (09:23→16:22)
[2022-01-13] MEDS: Carvedilol 25 MG TAB PO SCH ×2 (09:23→20:11)
[2022-01-13] MEDS: Ezetimibe 10 MG TAB PO SCH (09:23)
[2022-01-13] MEDS: glipiZIDE 5 MG TAB PO SCH ×2 (09:23→20:10)
[2022-01-13] MEDS ORDERED: Dextrose 5% in Water 1,000 ML IV PRN (09:52)
[2022-01-13] MEDS ORDERED: Dextrose 50% Abboject 50 ML SYRINGE SLOW IVP PRN (09:52)
[2022-01-13] MEDS: cefTRIAXone\\ROCEPHIN 1 GM in Sodium Chloride 0.9% 100 ML IVPB SCH (11:37)
[2022-01-13] MEDS: HumaLOG 300 UNITS/3 ML VIAL SC PRN ×2 (11:38→21:12)
[2022-01-13] MEDS: Azithromycin 500 MG in Sodium Chloride 0.9% 250 ML 250 ML IVPB SCH (11:39)
[2022-01-13 11:47] LABS: Iron 94 ug/dL (50-170); Iron Binding Capacity, Total 188 mcg/dL (265-497)
[2022-01-13] MEDS: Rosuvastatin 20 MG TAB PO SCH (20:11)
[2022-01-13] MEDS ORDERED: hydrOXYzine Pamoate 25 mg Capsule PO SCH (21:00)
[2022-01-14 05:37] LABS: Anion Gap 19 mmol/L (10-20); BUN (Urea Nitrogen) 67 mg/dL (9.8-20.1); Calc. Creatinine Clearance 11 mL/min (70-130); Carbon Dioxide 26 mmol/L (23-31); Chloride 97 mmol/L (98-107); Estimated GFR 7; Glucose 116 mg/dL (80-115); Magnesium 2.1 mg/dL (1.6-2.6); Phosphorus 6.1 mg/dL (2.3-4.7); Potassium 4.4 mmol/L (3.5-5.1); Sodium 138 mmol/L (136-145)
[2022-01-14 05:49] LABS: #Eosinphils 0.4 thou/uL (0.0-0.7); #Lymphocytes 0.5 thou/uL (1.20-3.40); #Monocytes 0.5 thou/uL (0.11-0.59); #Neutrophils 4.9 thou/uL (1.40-6.50); %Eosinophils 6.7 % (0.0-10.0); %Monocytes 8.5 % (0.0-10.0); %Neutrophils 76.9 % (42.0-75.0); Hemoglobin 7.4 g/dL (12.0-16.0); Mean Corpuscular HGB CONC 32.6 g/dL (32.0-36.0); Mean Corpuscular Hemoglobin 33.5 pg (27.0-31.0); Mean Platelet Volume 8.6 fL (7.4-10.4); Platelet Count 101 10x3/uL (130-400); RBC Distribution Width 13.7 % (11.5-14.5); Red Blood Cell (RBC) Count 2.23 mill/uL (4.20-5.40); White Blood Cell (WBC) Count 6.4 10x3/uL (4.8-10.8)
[2022-01-14] MEDS ORDERED: Epoetin (ESRD) 10,000 UNITS/ML VIAL SC SCH (09:00)
[2022-01-14] MEDS: Aspirin 325 MG TAB PO SCH (14:33)
[2022-01-14] MEDS: Carvedilol 25 MG TAB PO SCH ×2 (14:33→20:48)
[2022-01-14] MEDS: Sacubitril 49 MG/Valsartan 51 MG TABLET PO SCH ×2 (14:33→20:48)
[2022-01-14] MEDS: Sevelamer Carbonate 800 MG TAB PO SCH ×3 (14:34→18:39)
[2022-01-14] MEDS: Ezetimibe 10 MG TAB PO SCH (14:34)
[2022-01-14] MEDS: glipiZIDE 5 MG TAB PO SCH ×2 (14:34→20:48)
[2022-01-14] MEDS: cefTRIAXone\\ROCEPHIN 1 GM in Sodium Chloride 0.9% 100 ML IVPB SCH (14:38)
[2022-01-14] MEDS: Azithromycin 500 MG in Sodium Chloride 0.9% 250 ML 250 ML IVPB SCH (14:38)
[2022-01-14] MEDS: Rosuvastatin 20 MG TAB PO SCH (20:47)
[2022-01-14] MEDS ORDERED: hydrOXYzine 25 MG TAB PO SCH (21:15)
[2022-01-15] MEDS ORDERED: ALPRAZolam 0.25 MG TAB PO PRN (00:22)
[2022-01-15 04:43] LABS: #Eosinphils 0.4 thou/uL (0.0-0.7); #Lymphocytes 0.5 thou/uL (1.20-3.40); #Monocytes 0.6 thou/uL (0.11-0.59); #Neutrophils 4.5 thou/uL (1.40-6.50); %Basophils 0.2 % (0.0-1.0); %Eosinophils 6.2 % (0.0-10.0); %Lymphocytes 8.7 % (21.0-51.0); %Monocytes 10.4 % (0.0-10.0); %Neutrophils 74.5 % (42.0-75.0); Hemoglobin 8.4 g/dL (12.0-16.0); Mean Corpuscular Hemoglobin 33.8 pg (27.0-31.0); Mean Platelet Volume 8.3 fL (7.4-10.4); Platelet Count 103 10x3/uL (130-400); Red Blood Cell (RBC) Count 2.48 mill/uL (4.20-5.40)
[2022-01-15 05:01] LABS: Anion Gap 16 mmol/L (10-20); BUN (Urea Nitrogen) 36 mg/dL (9.8-20.1); Calc. Creatinine Clearance 15 mL/min (70-130); Carbon Dioxide 29 mmol/L (23-31); Chloride 99 mmol/L (98-107); Estimated GFR 9; Glucose 140 mg/dL (80-115); Potassium 3.9 mmol/L (3.5-5.1); Sodium 140 mmol/L (136-145)
[2022-01-15] MEDS: Aspirin 325 MG TAB PO SCH (08:49)
[2022-01-15] MEDS: Sevelamer Carbonate 800 MG TAB PO SCH ×2 (08:49→12:20)
[2022-01-15] MEDS: Sacubitril 49 MG/Valsartan 51 MG TABLET PO SCH (08:49)
[2022-01-15] MEDS: Carvedilol 25 MG TAB PO SCH (08:50)
[2022-01-15] MEDS: glipiZIDE 5 MG TAB PO SCH (08:50)
[2022-01-15] MEDS: Ezetimibe 10 MG TAB PO SCH (08:50)
[2022-01-15 13:04] VITALS: BP 119/58; TEMP 98.7
== END 2022-01-15 14:15 | disposition home or self-care (01) | DRG 291 ==
LOC: ERS 08:26 → 2NO 13:03 → OBSVTOIN 01-13 12:23
PROVIDERS: ADMIT Internal Medicine; ATTEND Internal Medicine
PROC: 5A1D70Z Performance of Urinary Filtration, Intermittent, Less than 6 Hours Per Day (ICD-10-PCS; principal; 2022-01-12)
PROC: 8E0ZXY6 Isolation (ICD-10-PCS; 2022-01-13)
DX: I13.2 Hypertensive heart and chronic kidney disease with heart failure and with stage 5 chronic kidney disease, or end stage renal disease (principal); I50.23 Acute on chronic systolic (congestive) heart failure; J96.01 Acute respiratory failure with hypoxia; N18.6 End stage renal disease; N25.81 Secondary hyperparathyroidism of renal origin; I24.8 Other forms of acute ischemic heart disease; R19.7 Diarrhea, unspecified; I25.10 Atherosclerotic heart disease of native coronary artery without angina pectoris; D63.1 Anemia in chronic kidney disease; E11.22 Type 2 diabetes mellitus with diabetic chronic kidney disease; J45.20 Mild intermittent asthma, uncomplicated; I25.5 Ischemic cardiomyopathy; E78.5 Hyperlipidemia, unspecified; Z88.1 Allergy status to other antibiotic agents; Z88.0 Allergy status to penicillin; Z88.2 Allergy status to sulfonamides; Z99.2 Dependence on renal dialysis; Z88.8 Allergy status to other drugs, medicaments and biological substances; Z79.899 Other long term (current) drug therapy; Z79.51 Long term (current) use of inhaled steroids; Z79.82 Long term (current) use of aspirin; Z79.84 Long term (current) use of oral hypoglycemic drugs
CPT/HCPCS: 36415; 36416; 71045; 80048; 80053; 82553; 82728; 83540; 83550; 83735; 83880; 84100; 84145; 84484; 85025; 90935; 93005; 96367; 96375; 96376; G0257; G0378; J0456; J0692; J0696; J1815; J3370-JW; J3490; J7050; J7620; Q0177; Q4081

== ENCOUNTER 2022-04-27 22:06 | Emergency (ER) | payer MEDICARE, OTHER ==
[2022-04-27 23:19] LABS: Hemoglobin 12.2 g/dL (12.0-16.0); Mean Corpuscular HGB CONC 34.8 g/dL (32.0-36.0); Mean Corpuscular Hemoglobin 36.4 pg (27.0-31.0); RBC Distribution Width 13.5 % (11.5-14.5); Red Blood Cell (RBC) Count 3.34 mill/uL (4.20-5.40)
[2022-04-27 23:45] LABS: #Eosinphils 0.2 thou/uL (0.0-0.7); #Lymphocytes 0.6 thou/uL (1.20-3.40); #Monocytes 0.3 thou/uL (0.11-0.59); #Neutrophils 2.9 thou/uL (1.40-6.50); %Basophils 0.9 % (0.0-1.0); %Eosinophils 4.6 % (0.0-10.0); %Lymphocytes 14.7 % (21.0-51.0); %Monocytes 7.9 % (0.0-10.0); %Neutrophils 71.9 % (42.0-75.0); MDiff Complete? YES; Macrocytosis SLIGHT = 6-15 cells (100X) (0-5/hpf); Platelet Count 56 10x3/uL (130-400); Platelet Morphology Comment Appears Decreased
== END 2022-04-28 00:51 | disposition left against medical advice (07) ==
LOC: ERS 22:06
DX: Z53.29 Procedure and treatment not carried out because of patient's decision for other reasons (principal)
CPT/HCPCS: 36415; 85025

== ENCOUNTER 2022-06-29 12:37 | Emergency (ER) | payer MEDICARE, BC ==
[2022-06-29 13:57] LABS: #Eosinphils 0.1 thou/uL (0.0-0.7); #Lymphocytes 0.5 thou/uL (1.20-3.40); #Monocytes 0.4 thou/uL (0.11-0.59); %Basophils 0.1 % (0.0-1.0); %Eosinophils 1.5 % (0.0-10.0); %Lymphocytes 8.5 % (21.0-51.0); %Monocytes 6.8 % (0.0-10.0); Hemoglobin 10.4 g/dL (12.0-16.0); Mean Corpuscular HGB CONC 35.2 g/dL (32.0-36.0); Mean Corpuscular Hemoglobin 35.5 pg (27.0-31.0); Mean Platelet Volume 11.2 fL (7.4-10.4); Platelet Count 46 10x3/uL (130-400); RBC Distribution Width 13.5 % (11.5-14.5); Red Blood Cell (RBC) Count 2.92 mill/uL (4.20-5.40)
[2022-06-29 14:10] LABS: ALT (SGPT) 15 U/L (8-55); AST (SGOT) 28 U/L (5-34); Albumin 3.8 g/dL (3.4-4.8); Alkaline Phosphatase 85 U/L (40-110); Anion Gap 26 mmol/L (10-20); BUN (Urea Nitrogen) 86 mg/dL (9.8-20.1); Bilirubin, Total 0.7 mg/dL (0.2-1.2); Calc. Creatinine Clearance 0 mL/min (70-130); Calcium 8.8 mg/dL (7.8-10.44); Carbon Dioxide 20 mmol/L (23-31); Chloride 97 mmol/L (98-107); Estimated GFR 4; Globulin 2.9 g/dL (2.4-3.5); Glucose 162 mg/dL (80-115); Protein, Total 6.7 g/dL (5.8-8.1); Sodium 138 mmol/L (136-145)
[2022-06-29 14:32] LABS: CKMB 1.6 ng/mL (0-6.6)
== END 2022-06-29 15:03 | disposition home or self-care (01) ==
LOC: ERS 12:37
DX: R06.00 Dyspnea, unspecified (principal); I12.0 Hypertensive chronic kidney disease with stage 5 chronic kidney disease or end stage renal disease; N18.6 End stage renal disease; Z99.2 Dependence on renal dialysis; Z79.899 Other long term (current) drug therapy
CPT/HCPCS: 36415; 71045; 80053; 82553; 83880; 84484; 85025; 93005

== ENCOUNTER 2022-08-06 18:21 | Inpatient (IN) | payer MEDICARE, BC ==
[2022-08-06 18:52] LABS: Hemoglobin 11.3 g/dL (12.0-16.0); Mean Corpuscular HGB CONC 32.9 g/dL (32.0-36.0); Mean Corpuscular Hemoglobin 35.3 pg (27.0-31.0); Mean Corpuscular Volume 107.2 fl (78.0-98.0); Mean Platelet Volume 12.2 fL (7.4-10.4); RBC Distribution Width 18.6 % (11.5-14.5); White Blood Cell (WBC) Count 5.8 10x3/uL (4.8-10.8)
[2022-08-06 18:54] LABS: Delete Auto Diff?? YES; Manual Diff?? YES; Platelet Count 65 10x3/uL (130-400)
[2022-08-06 19:17] LABS: Anisocytosis SLIGHT = 6-15 cells HPF (0-5); Burr Cells SLIGHT = 2-5 cells HPF (0-1); CellaVision Operator ID LAB.MJL; Elliptocytes SLIGHT = 2-5 cells HPF (0-1); Eosinophils 2 % (0-10); Lymphocytes 7 % (21-51); Macrocytosis SLIGHT = 6-15 cells HPF (0-5); Monocytes 7 % (0-10); Neutrophil 83 % (42-75); Nucleated RBC (Manual Ct) 3 % (0); Ovalocytes SLIGHT = 2-5 cells HPF (0-1); Platelet Adequacy Comment Platelets Decreased; Poikilocytosis SLIGHT = 6-15 cells HPF (0-5); Polychromasia MODERATE = 3-4 cells HPF (0-2); Tear Drops SLIGHT = 2-5 cells HPF (0-1); Total Cell Count 102
[2022-08-06 19:23] LABS: ALT (SGPT) 89 U/L (8-55); AST (SGOT) 92 U/L (5-34); Albumin 3.7 g/dL (3.4-4.8); Alkaline Phosphatase 102 U/L (40-110); Anion Gap 21 mmol/L (10-20); BUN (Urea Nitrogen) 43 mg/dL (9.8-20.1); Bilirubin, Total 0.6 mg/dL (0.2-1.2); Calc. Creatinine Clearance 0 mL/min (70-130); Calcium 10.3 mg/dL (7.8-10.44); Carbon Dioxide 27 mmol/L (23-31); Chloride 93 mmol/L (98-107); Estimated GFR 7; Globulin 2.9 g/dL (2.4-3.5); Glucose 270 mg/dL (80-115); Potassium 4.7 mmol/L (3.5-5.1); Protein, Total 6.6 g/dL (5.8-8.1); Sodium 136 mmol/L (136-145)
[2022-08-06 19:50] LABS: CKMB 3.3 ng/mL (0-6.6)
[2022-08-06] MEDS ORDERED: Oxymetazoline HCl 0.05% (30 ML BOT) ONE (20:07)
[2022-08-06] MEDS ORDERED: Ipratropium/Albuterol 3 ML NEB ONE (20:11)
[2022-08-06] MEDS ORDERED: Dextrose 50% Abboject 50 ML SYRINGE SLOW IVP PRN (21:12)
[2022-08-06] MEDS ORDERED: Dextrose 5% in Water 1,000 ML IV PRN (21:12)
[2022-08-06] MEDS ORDERED: Glucagon 1 MG/ML KIT IM PRN (21:12)
[2022-08-06] MEDS ORDERED: Albuterol 200 PUFF (6.7GM INHALER) INH PRN (21:42)
[2022-08-06 23:56] VITALS: BMI 32.3
[2022-08-07] MEDS: Acetaminophen 325 MG TAB PO PRN (03:58)
[2022-08-07 05:12] LABS: #Eosinphils 0.1 thou/uL (0.0-0.7); #Monocytes 0.8 thou/uL (0.11-0.59); #Neutrophils 4.9 thou/uL (1.40-6.50); %Basophils 0.6 % (0.0-1.0); %Eosinophils 1.5 % (0.0-10.0); %Lymphocytes 12.7 % (21.0-51.0); %Monocytes 11.9 % (0.0-10.0); Hemoglobin 10.6 g/dL (12.0-16.0); Mean Corpuscular HGB CONC 33.1 g/dL (32.0-36.0); Mean Corpuscular Hemoglobin 35.6 pg (27.0-31.0); Mean Corpuscular Volume 107.4 fl (78.0-98.0); Mean Platelet Volume 12.5 fL (7.4-10.4); RBC Distribution Width 18.4 % (11.5-14.5); Red Blood Cell (RBC) Count 2.98 mill/uL (4.20-5.40); White Blood Cell (WBC) Count 6.8 10x3/uL (4.8-10.8)
[2022-08-07 05:14] LABS: Platelet Count 56 10x3/uL (130-400)
[2022-08-07 05:33] LABS: Anion Gap 20 mmol/L (10-20); BUN (Urea Nitrogen) 51 mg/dL (9.8-20.1); Calc. Creatinine Clearance 11 mL/min (70-130); Calcium 9.5 mg/dL (7.8-10.44); Carbon Dioxide 25 mmol/L (23-31); Chloride 95 mmol/L (98-107); Estimated GFR 7; Glucose 200 mg/dL (80-115); Potassium 4.5 mmol/L (3.5-5.1); Sodium 135 mmol/L (136-145)
[2022-08-07] MEDS: HumaLOG 300 UNITS/3 ML VIAL SC PRN ×2 (06:10→13:35)
[2022-08-07] MEDS: Mometasone 100 MCG/Formoterol 5 MCG 120 PUFF INHALER INH SCH (06:44)
[2022-08-07] MEDS: Ezetimibe 10 MG TAB PO SCH (09:14)
[2022-08-07 09:58] LABS: CKMB 3.3 ng/mL (0-6.6)
[2022-08-07] MEDS ORDERED: HYDROmorphone 0.5 MG/0.5 ML SYRINGE SLOW IVP SCH (10:15)
[2022-08-07] MEDS ORDERED: Rosuvastatin 10 MG TAB PO SCH (21:00)
[2022-08-07] MEDS: Rosuvastatin 10 MG TAB PO SCH (21:40)
[2022-08-08] MEDS: HumaLOG 300 UNITS/3 ML VIAL SC PRN ×3 (06:03→18:25)
[2022-08-08] MEDS: Mometasone 100 MCG/Formoterol 5 MCG 120 PUFF INHALER INH SCH (07:06)
[2022-08-08] MEDS: Ezetimibe 10 MG TAB PO SCH (08:43)
[2022-08-08 09:50] LABS: #Eosinphils 0.2 thou/uL (0.0-0.7); #Monocytes 0.7 thou/uL (0.11-0.59); %Basophils 0.5 % (0.0-1.0); %Eosinophils 2.6 % (0.0-10.0); %Lymphocytes 6.2 % (21.0-51.0); %Monocytes 11.2 % (0.0-10.0); %Neutrophils 79.3 % (42.0-75.0); Mean Corpuscular HGB CONC 32.4 g/dL (32.0-36.0); Mean Corpuscular Hemoglobin 35.4 pg (27.0-31.0); RBC Distribution Width 18.9 % (11.5-14.5); Red Blood Cell (RBC) Count 3.11 mill/uL (4.20-5.40); White Blood Cell (WBC) Count 6.3 10x3/uL (4.8-10.8)
[2022-08-08 09:56] LABS: Platelet Count 57 10x3/uL (130-400)
[2022-08-08] MEDS: Sevelamer Carbonate 800 MG TAB PO SCH ×2 (13:38→18:25)
[2022-08-08] MEDS: Ondansetron PF 4 MG/2 ML Vial IVP PRN (19:50)
[2022-08-08] MEDS ORDERED: ALPRAZolam 0.25 MG TAB PO PRN ×2 (20:06→20:58)
[2022-08-08] MEDS: Rosuvastatin 10 MG TAB PO SCH (20:47)
[2022-08-08] MEDS ORDERED: ALPRAZolam 0.5 MG TAB PO SCH (21:00)
[2022-08-08] MEDS ORDERED: Sacubitril 24MG/Valsartan 26 MG TAB PO SCH (21:00)
[2022-08-08] MEDS: ALPRAZolam 0.25 MG TAB PO PRN (21:31)
[2022-08-09] MEDS: ALPRAZolam 0.25 MG TAB PO PRN ×3 (01:24→23:00)
[2022-08-09] MEDS: Acetaminophen 325 MG TAB PO PRN ×4 (01:28→23:01)
[2022-08-09] MEDS: Mometasone 100 MCG/Formoterol 5 MCG 120 PUFF INHALER INH SCH (07:02)
[2022-08-09] MEDS: Aspirin 81 mg Enteric Coated Tablet PO SCH (08:20)
[2022-08-09] MEDS: Sevelamer Carbonate 800 MG TAB PO SCH ×4 (08:20→17:25)
[2022-08-09] MEDS: Ezetimibe 10 MG TAB PO SCH (08:20)
[2022-08-09] MEDS: HumaLOG 300 UNITS/3 ML VIAL SC PRN ×2 (12:37→17:25)
[2022-08-09] MEDS: Ondansetron PF 4 MG/2 ML Vial IVP PRN ×2 (17:33→23:36)
[2022-08-09] MEDS: Rosuvastatin 10 MG TAB PO SCH (19:56)
[2022-08-10] MEDS: ALPRAZolam 0.25 MG TAB PO PRN ×2 (02:20→22:12)
[2022-08-10 05:06] LABS: #Eosinphils 0.1 thou/uL (0.0-0.7); #Monocytes 0.8 thou/uL (0.11-0.59); #Neutrophils 3.7 thou/uL (1.40-6.50); %Basophils 0.6 % (0.0-1.0); %Eosinophils 1.7 % (0.0-10.0); %Lymphocytes 11.4 % (21.0-51.0); %Monocytes 15.4 % (0.0-10.0); %Neutrophils 70.7 % (42.0-75.0); Hemoglobin 11.2 g/dL (12.0-16.0); Mean Corpuscular HGB CONC 32.8 g/dL (32.0-36.0); Mean Corpuscular Hemoglobin 35.9 pg (27.0-31.0); Mean Corpuscular Volume 109.3 fl (78.0-98.0); Mean Platelet Volume 12.6 fL (7.4-10.4); RBC Distribution Width 18.7 % (11.5-14.5); Red Blood Cell (RBC) Count 3.12 mill/uL (4.20-5.40); White Blood Cell (WBC) Count 5.2 10x3/uL (4.8-10.8)
[2022-08-10 05:21] LABS: Platelet Count 57 10x3/uL (130-400)
[2022-08-10 05:35] LABS: Anion Gap 22 mmol/L (10-20); BUN (Urea Nitrogen) 70 mg/dL (9.8-20.1); Calc. Creatinine Clearance 10 mL/min (70-130); Carbon Dioxide 22 mmol/L (23-31); Chloride 95 mmol/L (98-107); Estimated GFR 6; Glucose 182 mg/dL (80-115); Potassium 4.9 mmol/L (3.5-5.1); Sodium 134 mmol/L (136-145)
[2022-08-10] MEDS: Mometasone 100 MCG/Formoterol 5 MCG 120 PUFF INHALER INH SCH (08:13)
[2022-08-10] MEDS ORDERED: Iopamidol 370 76% 100 ML VIAL ONE (09:12)
[2022-08-10] MEDS ORDERED: ALPRAZolam 0.25 MG TAB PO SCH (09:45)
[2022-08-10] MEDS: Aspirin 81 mg Enteric Coated Tablet PO SCH (10:32)
[2022-08-10] MEDS: Ezetimibe 10 MG TAB PO SCH (10:32)
[2022-08-10] MEDS: Sevelamer Carbonate 800 MG TAB PO SCH ×3 (10:33→17:45)
[2022-08-10 10:46] LABS: Hemoglobin A1c 7.7 % (4.0-6.0)
[2022-08-10] MEDS ORDERED: Clindamycin/D5W 900 mg/50 ml Premix Bag ONE (13:48)
[2022-08-10] MEDS ORDERED: Levofloxacin 500 mg/D5W 100 ml Premix Bag ONE ×2 (13:48)
[2022-08-10] MEDS ORDERED: Lidocaine 1% (PF) 30 ML VIAL ONE (13:48)
[2022-08-10] MEDS ORDERED: Gentamicin 80 MG/2 ML VIAL ONE (13:48)
[2022-08-10] MEDS ORDERED: Ketamine In 0.9 % NaCl 50 MG/5 ML SYRINGE ONE (14:37)
[2022-08-10] MEDS ORDERED: PHENYLEPHRINE-NS 100 MCG/ML 10 ML SYRINGE ONE (15:33)
[2022-08-10] MEDS: Rosuvastatin 10 MG TAB PO SCH (22:12)
[2022-08-10] MEDS: Doxycycline 100 MG CAP PO SCH (22:12)
[2022-08-11] MEDS: Acetaminophen 325 MG TAB PO PRN (00:17)
[2022-08-11] MEDS: ALPRAZolam 0.25 MG TAB PO PRN (00:18)
[2022-08-11 05:42] LABS: #Eosinphils 0.1 thou/uL (0.0-0.7); #Monocytes 0.7 thou/uL (0.11-0.59); #Neutrophils 4.2 thou/uL (1.40-6.50); %Basophils 0.6 % (0.0-1.0); %Eosinophils 1.9 % (0.0-10.0); %Lymphocytes 5.4 % (21.0-51.0); %Monocytes 13.4 % (0.0-10.0); %Neutrophils 78.3 % (42.0-75.0); Hemoglobin 10.8 g/dL (12.0-16.0); Mean Corpuscular HGB CONC 31.6 g/dL (32.0-36.0); Mean Corpuscular Hemoglobin 36.6 pg (27.0-31.0); Mean Corpuscular Volume 115.9 fl (78.0-98.0); Mean Platelet Volume 12.4 fL (7.4-10.4); RBC Distribution Width 19.2 % (11.5-14.5); Red Blood Cell (RBC) Count 2.95 mill/uL (4.20-5.40); White Blood Cell (WBC) Count 5.4 10x3/uL (4.8-10.8)
[2022-08-11 05:50] LABS: Platelet Count 50 10x3/uL (130-400)
[2022-08-11 05:54] LABS: Anion Gap 18 mmol/L (10-20); BUN (Urea Nitrogen) 41 mg/dL (9.8-20.1); Calc. Creatinine Clearance 15 mL/min (70-130); Calcium 7.8 mg/dL (7.8-10.44); Carbon Dioxide 18 mmol/L (23-31); Chloride 101 mmol/L (98-107); Estimated GFR 9; Glucose 193 mg/dL (80-115); Potassium 4.1 mmol/L (3.5-5.1); Sodium 133 mmol/L (136-145)
[2022-08-11] MEDS: HumaLOG 300 UNITS/3 ML VIAL SC PRN (06:35)
[2022-08-11] MEDS: Mometasone 100 MCG/Formoterol 5 MCG 120 PUFF INHALER INH SCH (07:53)
[2022-08-11 08:26] VITALS: TEMP 97.6
[2022-08-11] MEDS: Aspirin 81 mg Enteric Coated Tablet PO SCH (10:04)
[2022-08-11] MEDS: Sevelamer Carbonate 800 MG TAB PO SCH ×2 (10:04→14:27)
[2022-08-11] MEDS: Doxycycline 100 MG CAP PO SCH (10:04)
[2022-08-11] MEDS: Ezetimibe 10 MG TAB PO SCH (10:04)
[2022-08-11 13:16] VITALS: BP 133/102
== END 2022-08-11 17:05 | disposition home or self-care (01) | DRG 226 ==
LOC: ERS 18:21 → SUATTDRO 18:21 → 2SW 21:05 → OBSVTOIN 21:05
PROVIDERS: ADMIT Family Medicine; ATTEND Internal Medicine
PROC: 0JH609Z Insertion of Cardiac Resynchronization Defibrillator Pulse Generator into Chest Subcutaneous Tissue and Fascia, Open Approach (ICD-10-PCS; principal; 2022-08-10)
PROC: 02HL3KZ Insertion of Defibrillator Lead into Left Ventricle, Percutaneous Approach (ICD-10-PCS; 2022-08-10)
PROC: 0JPT0PZ Removal of Cardiac Rhythm Related Device from Trunk Subcutaneous Tissue and Fascia, Open Approach (ICD-10-PCS; 2022-08-10)
PROC: 5A1D70Z Performance of Urinary Filtration, Intermittent, Less than 6 Hours Per Day (ICD-10-PCS; 2022-08-10)
DX: I13.2 Hypertensive heart and chronic kidney disease with heart failure and with stage 5 chronic kidney disease, or end stage renal disease (principal); I21.A1 Myocardial infarction type 2; I50.43 Acute on chronic combined systolic (congestive) and diastolic (congestive) heart failure; J96.01 Acute respiratory failure with hypoxia; N18.6 End stage renal disease; E87.1 Hypo-osmolality and hyponatremia; I25.10 Atherosclerotic heart disease of native coronary artery without angina pectoris; E11.22 Type 2 diabetes mellitus with diabetic chronic kidney disease; I27.20 Pulmonary hypertension, unspecified; J45.909 Unspecified asthma, uncomplicated; I95.1 Orthostatic hypotension; I25.5 Ischemic cardiomyopathy; F41.9 Anxiety disorder, unspecified; D63.1 Anemia in chronic kidney disease; D69.6 Thrombocytopenia, unspecified; E78.00 Pure hypercholesterolemia, unspecified; Z20.822 Contact with and (suspected) exposure to COVID-19; Z99.2 Dependence on renal dialysis; Z95.1 Presence of aortocoronary bypass graft; Z95.2 Presence of prosthetic heart valve; Z88.2 Allergy status to sulfonamides; Z88.0 Allergy status to penicillin; Z88.8 Allergy status to other drugs, medicaments and biological substances; Z79.82 Long term (current) use of aspirin; Z79.899 Other long term (current) drug therapy; Z79.51 Long term (current) use of inhaled steroids; Z90.710 Acquired absence of both cervix and uterus
CPT/HCPCS: 33225; 33241; 33249; 33264; 36415; 36416; 71045; 80048; 80053; 82553; 83036; 83880; 84145; 84443; 84484; 85025; 87635; 90935; 93005; 93306; 94640; C1763; C1769; C1882; C1894; C1900; G0257; J1170; J1580; J1815; J1956; J2001; J2405; J3490; J7620; Q9967

== ENCOUNTER 2022-08-12 07:03 | Inpatient (IN) | payer MEDICARE, BC ==
[2022-08-12 08:08] LABS: #Eosinphils 0.1 thou/uL (0.0-0.7); #Monocytes 0.8 thou/uL (0.11-0.59); #Neutrophils 3.7 thou/uL (1.40-6.50); %Basophils 0.6 % (0.0-1.0); %Eosinophils 2.7 % (0.0-10.0); %Monocytes 15.1 % (0.0-10.0); %Neutrophils 73.4 % (42.0-75.0); Hemoglobin 10.1 g/dL (12.0-16.0); Mean Corpuscular HGB CONC 32.8 g/dL (32.0-36.0); Mean Corpuscular Hemoglobin 36.5 pg (27.0-31.0); Mean Corpuscular Volume 111.2 fl (78.0-98.0); Mean Platelet Volume 12.4 fL (7.4-10.4); Platelet Count 51 10x3/uL (130-400); RBC Distribution Width 18.9 % (11.5-14.5); Red Blood Cell (RBC) Count 2.77 mill/uL (4.20-5.40); White Blood Cell (WBC) Count 5.1 10x3/uL (4.8-10.8)
[2022-08-12 08:43] LABS: ALT (SGPT) 37 U/L (8-55); AST (SGOT) 41 U/L (5-34); Albumin 3.2 g/dL (3.4-4.8); Alkaline Phosphatase 145 U/L (40-110); Anion Gap 17 mmol/L (10-20); BUN (Urea Nitrogen) 62 mg/dL (9.8-20.1); Bilirubin, Total 0.6 mg/dL (0.2-1.2); Calc. Creatinine Clearance 0 mL/min (70-130); Calcium 8.6 mg/dL (7.8-10.44); Carbon Dioxide 26 mmol/L (23-31); Chloride 97 mmol/L (98-107); Estimated GFR 7; Globulin 2.7 g/dL (2.4-3.5); Glucose 203 mg/dL (80-115); Potassium 4.2 mmol/L (3.5-5.1); Protein, Total 5.9 g/dL (5.8-8.1); Sodium 136 mmol/L (136-145)
[2022-08-12 09:09] LABS: CKMB 11.6 ng/mL (0-6.6)
[2022-08-12] MEDS ORDERED: Lorazepam 1 MG TAB ONE (10:38)
[2022-08-12] MEDS ORDERED: Acetaminophen 325 MG TAB ONE (11:06)
[2022-08-12 11:25] LABS: HBSAg Index 0.23 S/CO (0-0.99); Hep B Core Total Ab Non-Reactive (NonReactive); Hep B Core Total Index 0.08 S/CO (0-0.79); Hep B Surf Ag Non-Reactive S/CO (NonReactive); Hep C IgG Ab Non-Reactive S/CO (NonReactive); Hep C Index 0.09 S/CO (0-0.79)
[2022-08-12 13:10] LABS: Hep B Surf AB Indeterminate (NonReactive)
[2022-08-12 13:12] LABS: HBSAB Concentration 9.41 mIU/mL
[2022-08-12 13:13] LABS: CKMB 13.8 ng/mL (0-6.6)
[2022-08-12] MEDS ORDERED: Dextrose 50% Abboject 50 ML SYRINGE SLOW IVP PRN (13:29)
[2022-08-12] MEDS ORDERED: Glucagon 1 MG/ML KIT IM PRN (13:29)
[2022-08-12] MEDS ORDERED: Dextrose 5% in Water 1,000 ML IV PRN (13:29)
[2022-08-12] MEDS: Acetaminophen 325 MG TAB PO PRN (19:52)
[2022-08-12] MEDS ORDERED: hydrOXYzine 25 MG TAB PO SCH (20:15)
[2022-08-12] MEDS ORDERED: Sodium Chloride 0.9% 250 ML IV SCH ×2 (20:45→21:15)
[2022-08-12] MEDS ORDERED: Doxycycline 100 MG CAP PO SCH (21:00)
[2022-08-12 21:13] LABS: Critical Call Chem Troponin I RESULT DECREASING; Troponin I 15.457 ng/mL (< 0.028)
[2022-08-12] MEDS ORDERED: Midodrine HCl 5 MG TAB PO SCH (21:15)
[2022-08-12] MEDS ORDERED: Sodium Chloride 0.9% 250 ML 250 ML IV SCH (23:00)
[2022-08-12] MEDS: Sevelamer Carbonate 800 MG TAB PO SCH (23:18)
[2022-08-12] MEDS: Sacubitril 49 MG/Valsartan 51 MG TABLET PO SCH (23:18)
[2022-08-12 23:28] LABS: #Eosinphils 0.1 thou/uL (0.0-0.7); #Monocytes 0.6 thou/uL (0.11-0.59); #Neutrophils 4.5 thou/uL (1.40-6.50); %Basophils 0.5 % (0.0-1.0); %Eosinophils 1.6 % (0.0-10.0); %Lymphocytes 6.7 % (21.0-51.0); %Monocytes 10.3 % (0.0-10.0); %Neutrophils 80.5 % (42.0-75.0); Hemoglobin 10.5 g/dL (12.0-16.0); Mean Corpuscular HGB CONC 31.9 g/dL (32.0-36.0); Mean Corpuscular Volume 112.7 fl (78.0-98.0); Mean Platelet Volume 12.8 fL (7.4-10.4); RBC Distribution Width 19.1 % (11.5-14.5); Red Blood Cell (RBC) Count 2.92 mill/uL (4.20-5.40); White Blood Cell (WBC) Count 5.6 10x3/uL (4.8-10.8)
[2022-08-12] MEDS ORDERED: VANCOMYCIN 1.75 GM/500 ML BAG 1.75 GM in Premix Bag 1 BAG IVPB SCH (23:30)
[2022-08-12] MEDS: Famotidine 20 MG TAB PO SCH (23:34)
[2022-08-12] MEDS: Rosuvastatin 10 MG TAB PO SCH (23:35)
[2022-08-12] MEDS: Cefepime 1 GM in Sodium Chloride 0.9% 100 ML IVPB SCH (23:35)
[2022-08-12 23:38] LABS: Platelet Count 58 10x3/uL (130-400)
[2022-08-12] MEDS: Ondansetron PF 4 MG/2 ML Vial IVP PRN (23:40)
[2022-08-12 23:47] LABS: Lactic Acid 2.8 mmol/L (0.5-2.2)
[2022-08-12 23:52] LABS: ALT (SGPT) 39 U/L (8-55); AST (SGOT) 59 U/L (5-34); Albumin 3.3 g/dL (3.4-4.8); Alkaline Phosphatase 109 U/L (40-110); Anion Gap 19 mmol/L (10-20); BUN (Urea Nitrogen) 34 mg/dL (9.8-20.1); Bilirubin, Total 0.8 mg/dL (0.2-1.2); Calc. Creatinine Clearance 15 mL/min (70-130); Calcium 8.6 mg/dL (7.8-10.44); Carbon Dioxide 25 mmol/L (23-31); Chloride 97 mmol/L (98-107); Estimated GFR 10; Globulin 2.8 g/dL (2.4-3.5); Glucose 300 mg/dL (80-115); Protein, Total 6.1 g/dL (5.8-8.1); Sodium 137 mmol/L (136-145)
[2022-08-12] MEDS: HumaLOG 300 UNITS/3 ML VIAL SC PRN (23:55)
[2022-08-13] MEDS ORDERED: Sodium Chloride 0.9% 250 ML IV SCH (00:15)
[2022-08-13] MEDS: Acetaminophen 325 MG TAB PO PRN ×3 (00:33→20:54)
[2022-08-13 03:21] LABS: #Eosinphils 0.1 thou/uL (0.0-0.7); #Monocytes 0.7 thou/uL (0.11-0.59); #Neutrophils 5.4 thou/uL (1.40-6.50); %Basophils 0.4 % (0.0-1.0); %Eosinophils 1.8 % (0.0-10.0); %Lymphocytes 7.6 % (21.0-51.0); %Monocytes 10.9 % (0.0-10.0); Hemoglobin 10.4 g/dL (12.0-16.0); Mean Corpuscular HGB CONC 32.3 g/dL (32.0-36.0); Mean Corpuscular Hemoglobin 36.2 pg (27.0-31.0); Mean Corpuscular Volume 112.2 fl (78.0-98.0); Mean Platelet Volume 12.6 fL (7.4-10.4); RBC Distribution Width 19.1 % (11.5-14.5); Red Blood Cell (RBC) Count 2.87 mill/uL (4.20-5.40); White Blood Cell (WBC) Count 6.8 10x3/uL (4.8-10.8)
[2022-08-13 03:27] LABS: Platelet Count 64 10x3/uL (130-400)
[2022-08-13 03:42] LABS: Anion Gap 18 mmol/L (10-20); BUN (Urea Nitrogen) 39 mg/dL (9.8-20.1); Calc. Creatinine Clearance 15 mL/min (70-130); Calcium 8.2 mg/dL (7.8-10.44); Carbon Dioxide 23 mmol/L (23-31); Chloride 102 mmol/L (98-107); Estimated GFR 10; Glucose 276 mg/dL (80-115); Lactic Acid 3.4 mmol/L (0.5-2.2); Potassium 4.1 mmol/L (3.5-5.1); Sodium 139 mmol/L (136-145)
[2022-08-13] MEDS: HumaLOG 300 UNITS/3 ML VIAL SC PRN (05:03)
[2022-08-13 06:37] LABS: Lactic Acid 2.8 mmol/L (0.5-2.2)
[2022-08-13] MEDS ORDERED: Mometasone 100 MCG/Formoterol 5 MCG 120 PUFF INHALER INH SCH (07:00)
[2022-08-13] MEDS: Ondansetron PF 4 MG/2 ML Vial IVP PRN (08:39)
[2022-08-13] MEDS: Sacubitril 49 MG/Valsartan 51 MG TABLET PO SCH (08:39)
[2022-08-13] MEDS: Sevelamer Carbonate 800 MG TAB PO SCH ×3 (08:39→19:13)
[2022-08-13] MEDS: Midodrine HCl 5 MG TAB PO SCH ×3 (08:41→20:54)
[2022-08-13] MEDS ORDERED: Aspirin 81 mg Enteric Coated Tablet PO SCH (09:00)
[2022-08-13] MEDS ORDERED: Ezetimibe 10 MG TAB PO SCH (09:00)
[2022-08-13 10:35] VITALS: BMI 31.6
[2022-08-13] MEDS ORDERED: Vancomycin Diaylsis Sliding Scale (Wt 71-99) FS SCH (11:00)
[2022-08-13] MEDS: Rosuvastatin 10 MG TAB PO SCH (20:53)
[2022-08-13] MEDS: Famotidine 20 MG TAB PO SCH (20:53)
[2022-08-13 20:59] VITALS: BP 119/67; TEMP 97.6
[2022-08-13] MEDS ORDERED: Sacubitril 49 MG/Valsartan 51 MG TABLET PO SCH (21:00)
[2022-08-13] MEDS: Cefepime 1 GM in Sodium Chloride 0.9% 100 ML IVPB SCH (21:55)
== END 2022-08-13 22:20 | disposition short-term general hospital (02) | DRG 280 ==
LOC: ERS 07:03 → 2NO 14:42
PROVIDERS: ADMIT Internal Medicine; ATTEND Internal Medicine
PROC: 5A1D70Z Performance of Urinary Filtration, Intermittent, Less than 6 Hours Per Day (ICD-10-PCS; principal; 2022-08-12)
DX: I21.4 Non-ST elevation (NSTEMI) myocardial infarction (principal); I50.43 Acute on chronic combined systolic (congestive) and diastolic (congestive) heart failure; N18.6 End stage renal disease; J96.01 Acute respiratory failure with hypoxia; I13.2 Hypertensive heart and chronic kidney disease with heart failure and with stage 5 chronic kidney disease, or end stage renal disease; T82.857A Stenosis of other cardiac prosthetic devices, implants and grafts, initial encounter; E11.22 Type 2 diabetes mellitus with diabetic chronic kidney disease; J45.909 Unspecified asthma, uncomplicated; D63.1 Anemia in chronic kidney disease; I25.5 Ischemic cardiomyopathy; D69.6 Thrombocytopenia, unspecified; E78.00 Pure hypercholesterolemia, unspecified; I44.7 Left bundle-branch block, unspecified; F41.9 Anxiety disorder, unspecified; I95.9 Hypotension, unspecified; Y83.8 Other surgical procedures as the cause of abnormal reaction of the patient, or of later complication, without mention of misadventure at the time of the procedure; Z88.8 Allergy status to other drugs, medicaments and biological substances; Z88.0 Allergy status to penicillin; Z88.2 Allergy status to sulfonamides; Z88.1 Allergy status to other antibiotic agents; Z79.899 Other long term (current) drug therapy; I25.2 Old myocardial infarction; Z79.82 Long term (current) use of aspirin; Z79.51 Long term (current) use of inhaled steroids; Z95.2 Presence of prosthetic heart valve; Z95.810 Presence of automatic (implantable) cardiac defibrillator; Z95.1 Presence of aortocoronary bypass graft; Z90.710 Acquired absence of both cervix and uterus; Z98.890 Other specified postprocedural states; Z98.42 Cataract extraction status, left eye; Z98.41 Cataract extraction status, right eye; Z99.2 Dependence on renal dialysis
CPT/HCPCS: 36415; 36416; 71045; 80048; 80053; 82553; 83605; 83880; 84484; 85025; 86704; 87040; 90935; 93005; G0257; J0692; J1815; J2405; J3370; J3490; J7030; J7050